=== PATIENT | female | born 1980 | race Caucasian/White ===

== ENCOUNTER 2023-08-29 11:23 | Outpatient (OUT) | payer OTHER, SELFPAY | END 2023-08-29 11:24 | disposition home or self-care (01) | PROVIDERS: PCP Family Medicine; Visit Provider Family Medicine | DX: R35.0 Frequency of micturition (principal) | CPT/HCPCS: 87086 ==

== ENCOUNTER 2023-10-24 08:24 | Outpatient (OUT) | payer OTHER, SELFPAY ==
[2023-10-24 09:33] LABS: Thyroid Stimulating Hormone 2.748 uIU/mL (0.358-3.740)
== END 2023-10-24 08:25 | disposition home or self-care (01) ==
PROVIDERS: PCP Family Medicine; Visit Provider Family Medicine
DX: R63.5 Abnormal weight gain (principal)
CPT/HCPCS: 36415; 84443

== ENCOUNTER 2024-05-10 16:55 | Outpatient (OUT) | payer OTHER, SELFPAY ==
--- OUTSIDE RECORDS SUMMARY | 2024-05-10 17:04 | XMS_ITS | CCD ---
Author Organization [facility] Care Team Providers Care Scales Inspector Name Role Phone LIZ CHI Admitting Unavailable LIZ CHI Attending Unavailable Liz Chi Unavailable DO Liz Chi Primary Care Provider [phone] DO Jeremiah Schmitz Attending Provider [phone] DO Liz Chi Primary Care Provider DO Jeremiah Schmitz Attending Provider [phone] DO Liz Chi Attending Provider Akila RAWLS Attending Unavailable Akila RAWLS Attending Unavailable Akila RAWLS Attending Unavailable DO Liz Chi Primary Care Provider DO Liz Chi Attending Provider CHINA Anderson Attending Provider [phone] Alexandra Anderson Unavailable Self, Referral Attending Provider Unavailable DO Liz Chi Primary Care Provider JEREMIAH SCHMITZ Attending Unavailable JEREMIAH SCHMITZ Referring Unavailable DO Jeremiah Schmitz Attending Provider Alexandra Anderson Admitting Unavailable Alexandra Anderson Attending Unavailable NO FAMILY, PHYSICIAN Primary Care Unavailable Liz Chi Primary Care Unavailable Self, Referral Admitting Unavailable Self, Referral Attending Unavailable Liz Chi Admitting Unavailable Liz Chi Primary Care Unavailable Liz Chi Attending Unavailable Jeremiah Schmitz Attending Unavailable Liz Chi Primary Care Unavailable Jeremiah Schmitz Admitting Unavailable Allergies Allergy Classification Reported Allergen(s) Allergy Type Date of Onset Reaction(s) Facility (8 sources) Penicillins Drug allergy (disorder) 9 Hives [facility] Repository (6 sources) Penicillin Drug Allergy hives [facility] Other (12 sources) penicillAMINE Drug Allergy 3 [facility] (12 sources) Covid-19 (Subunit) Vaccine Drug allergy 3 [facility] (1 source) Penicillins Drug allergy (disorder) 9 [facility] Repository Medications Current Medications Medication Drug Class(es) Dates Sig (Normalized) Sig (Original) [id number] 60 actuat albuterol 0.09 mg/actuat metered dose inhaler (9 sources) beta2-Adrenergic Agonist Start: 11-03-2023 Albuterol Sulfate HFA 108 (90 Base) MCG/ACT 2 inhalations Inhalation qid Oct, Active Start: 11-16-2022 Albuterol Sulf ate (2.5 MG/3ML) 0.083% 1 vial Inhalation q4 hrs prn Oct, Not-Taking Start: 11-16-2022 24 hr amphetamine aspartate 5 mg / amphetamine sulfate 5 mg / dextroamphetamine saccharate 5 mg / dextroamphetamine sulfate 5 mg extended release oral capsule (12 sources) Central Nervous System Stimulant Start: 03-01-2024 End: 04-06-2024 take 20 mg by mouth once daily in the morning Dextroamphetamine-Amphetamine Active 20 MG PO Every morning April 06, 2024 Start: 01-06-2024 take 1 capsule by [facility] every twenty-four hours Amphetamine-Dextroamphet ER 20 MG 1 capsule in the morning Orally Once a day for 30 days Dec, Active Start: 11-07-2023 take 1 capsule by mo [facility] every twenty-four hours Amphetamine-Dextroamphet ER 20 MG 1 capsule in the morning Orally Once a day for 30 days Oct, Active Start: 10-07-2023 take 1 capsule by mo [facility] every twenty-four hours Amphetamine-Dextroamphet ER 10 MG 1 capsule in the morning Orally Once a day for 30 days Sep, Active Start: 09-08-2023 take 1 tablet by [facility] once daily in the morning Amphetamine-Dextroamphetamine 10 MG 1 tablet qd am Orally and take 1 tablet in the early afternoon for 30 days Aug, Active cetirizine hydrochloride 10 mg oral tablet (16 sources) Histamine-1 Receptor Antagonist Start: 04-06-2024 take 1 tablet by mouth once daily Cetirizine (Zyrtec) 10 mg tablet Active 10 MG PO Daily April 06, 2024 12:00am [facility] ZyrTEC Allergy 10 MG 1 tablet Orally Once a day prn Active D-Mannose (4 sources) Start: 04-06-2024 D-Mannose Acti ve EACH PO Daily April 06, 2024 8:48am Start: 04-06-2024 End: 04-06-2024 D-Mannose Discontinued EACH PO April 06, 2024 12:00am April 06, 2024 8:48am D-Mannose - (9 sources) D-Mannose - as d irected Orally Active Fish Oils (6 sources) take 1 capsule by mouth once darío ly Fish Oil 1000 MG 1 capsule Orally Once a day Active Cl-Fs-Eweq-Fa-Ca Carb-Vit K (Women's Multivitamin) 18 mg-400 mcg- 500 mg-50 mcg tablet (2 sources) Start: 04-06-2024 Ne-Rk-Tfty-Fa-Ca Carb-Vit K (Women's Multivitamin) 18 mg-400 mcg- 500 mg-50 mcg tablet Active TAB PO April 06, 2024 12:00am nitrofurantoin, macrocrystals 25 mg / nitrofurantoin, monohydrate 75 mg oral capsule (5 sources) Nitrofuran Antibacterial Start: 08-30-2023 take 1 capsule by mouth twice daily at mealtime Macrobid 100 MG 1 capsule Orally bid with food for 7 days Aug, Active Start: 08-19-2023 take 1 capsule by [facility] every twelve hours Nitrofurantoin Monohyd Macro 100 MG 1 capsule with food Orally every 12 hrs for 5 days Jul, Active Start: 07-24-2021 oseltamivir 75 mg oral capsule (2 sources) Neuraminidase Inhibitor Start: 11-17-2022 take 1 capsule by mouth every twelve hours Tamiflu 75 MG 1 capsule Orally Twice a day for 5 day(s) Oct, Active predniSONE 20 mg oral tablet (2 sources) Start: 11-16-2022 take 2 tablets by mouth once daily at mealtime predniSONE 20 MG 2 tablets Orally qd with food or milk for 5 days Oct, Active valACYclovir 1000 mg oral tablet (3 sources) Herpesvirus Nucleoside Analog DNA Polymerase Inhibitor, Herpes Simplex Virus Nucleoside Analog DNA Polymerase Inhibitor, Herpes Zoster Virus Nucleoside Analog DNA Polymerase Inhibitor Start: 12-14-2021 take 1 tablet by mouth every eight hours Valtrex 1 GM 1 tablet Orally tid for 7 days prn Nov, Active Completed/Discontinued Medications Medication Drug Class(es) Dates Sig (Normalized) Sig (Original) azithromycin 250 mg oral tablet (4 sources) Macrolide Antimicrobial Start: 09-22-2022 Azithromycin 250 MG 2 tablets on day 1 Orally then take 1 tablet daily on days 2-5 for 5 days Aug, Not-Taking ibuprofen 600 mg oral tablet (7 sources) Nonsteroidal Anti-inflammatory Drug Start: 12-23-2018 End: 04-06-2024 take 600 mg by mouth every six hours Ibuprofen Discontinued 600 MG PO Q6H December 23, 2018 1:00am April 06, 2024 8:37am ondansetron 4 mg oral tablet (7 sources) Serotonin-3 Receptor Antagonist Start: 12-23-2018 End: 04-06-2024 take 1 tablet by mouth every eight hours Ondansetron Hcl (Zofran) 4 mg tablet Discontinued 4 MG PO Q8H 10 December 23, 2018 1:00am April 06, 2024 8:38am Problems Active Problems Problem Classification Problem Date Documented Date Episodic/Chronic Allergic reactions (15 sources) Atopic dermatitis; Translations: [Atopic dermatitis, unspecified] Chronic Allergic reactions (1 source) Urticaria, unspecified Episodic Anxiety disorders (15 sources) Anxiety; Translations: [Anxiety disorder, unspecified] Chronic Attention-deficit, conduct, and disruptive behavior disorders (6 sources) Attention deficit hyperactivity disorder; Translations: [Attention-deficit hyperactivity disorder, unspecified type] 03-01-2024 Chronic Attention-deficit, conduct, and disruptive behavior disorders (5 sources) Attention-deficit hyperactivity disorder, unspecified type; Translations: [Attention deficit disorder with hyperactivity] Chronic Nonmalignant breast conditions (1 source) Unspecified lump in unspecified breast Episodic Other circulatory disease (1 source) Other specified symptoms and signs involving the circulatory and respiratory systems Episodic Other endocrine disorders (15 sources) Hypoglycemia; Translations: [Hypoglycemia, unspecified] Chronic Other skin disorders (1 source) Localized swelling, mass and lump, unspecified Episodic Other upper respiratory disease (1 source) Other specified disorders of nose and nasal sinuses Episodic Residual codes; unclassified (1 source) Pain, unspecified Episodic Unclassified (1 source) Unspecified lump in the left breast, upper inner quadrant; Translations: [Unspecified lump in the left breast, upper inner quadrant] Onset: 06-10-2023 Urinary tract infections (15 sources) Chronic interstitial cystitis; Translations: [Interstitial cystitis (chronic) without hematuria] Chronic Urinary tract infections (1 source) Urinary tract infection, site not specified Episodic Past or Other Problems Problem Classification Problem Date Documented Da te Episodic/Chronic Genitourinary symptoms and ill-defined conditions (2 sources) Frequency of micturition; Translations: [Dysuria] Onset: 08-19-2023 Episodic Other nutritional; endocrine; and metabolic disorders (1 source) Abnormal weight loss Onset: 07-16-2022 Resolved: 07-16-2022 Episodic Unclassified (1 source) Cough R05.9 Results Test Name Value Interpretation Reference Range Facility US transvaginalon 05-03-2024 US transvaginal [facility] [place] [address] Ultrasound Report Signed Patient: Jennifer Collins MR#: [id number] 8 : 1980 Acct:[id number] Age/Sex: 44 / F ADM Date: 05/03/24 Loc: Room: Type: [facility] Attending Dr: Jeremiah Schmitz DO Ordering Provider: Jeremiah Schmitz DO Date of Service: 05/03/24 US/US pelvic complete: R10.2 ([id number]) US/US transvaginal: R10.2 Copies to: Jeremiah Schmitz DO EXAMINATION TYPE: US pelvic complete, US transvaginal Grayscale, color scale Doppler, vascular duplex analysis of the bilateral ovaries DATE OF EXAM ORDERED: 05/03/2024 5:34 PM HISTORY: Right-sided pelvic pain COMPARISON: NONE TECHNIQUE: Realtime Transvaginal and Transabdominal imaging was performed. Transvaginal imaging was utilized to better evaluate the ovaries and the endometrial stripe. Grayscale, color scale Doppler, vascular duplex analysis of the bilateral ovaries was performed to assess blood flow. FINDINGS: The uterus measures 9.1 x 4.7 x 5.2 cm. The uterus is normal in echogenicity. Endometrium: Normal thickness and appearance. The endometrium measures 8 mm in thickness. Ovaries: There is a dominant follicle in the right ovary measuring 2.5 cm in greatest dimension. There is no evidence of mass. Right Ovary measurements: 3.7 x 1.6 x 3.0 cm Left Ovary measurements: 2.9 x 1.4 x 2.8 cm No abnormal adnexal mass is seen. No free fluid in the pelvic cul-de-sac. Vascular duplex analysis of the bilateral ovaries demonstrates normal blood flow without evidence of ovarian ischemia. US/US pelvic complete IMPRESSION: There is a dominant follicle in the right ovary measuring 2.5 cm in greatest dimension. No mass or free fluid. No evidence of ovarian ischemia. Impression dictated by: Eligio Esteban M.D.05/03/2024 6:39 PM Dictation Location: [place] [address] Tech: Maureen Moses Transcribed By: JULIEN 05/03/241838 Dictated By: Eligio Esteban II, MD 05/03/241834 Signed By: 05/03/241838 Normal The Count Includes [facility] MM screening mammo BI w/CADo n 02-17-2024 MM screening mammo BI w/CAD [facility] [place] [address] [place] [address] Mammography Report Signed Patient: Jennifer Collins MR#: [id number] 8 : 1980 Acct:[id number] Age/Sex: 44 / F ADM Date: 02/17/24 Loc: [place] Room: Type: [facility] Attending Dr: Referral Self Copies to: Liz Chi DO SELF,REFERRAL Ordering Provider: SELF,REFERRAL Date of Service: 02/17/24 MM/MM screening mammo BI w/CAD: SCREENING CLINICAL DATA: Screening for malignancy. BILATERAL SCREENING MAMMOGRAMS - FULL FIELD DIGITAL WITH TOMOSYNTHESIS AND CAD Routine and implant displacement tomosynthesis craniocaudal and mediolateral oblique views of both breasts were obtained using low-dose digital technique. Comparison is made to prior studies from July 23, 2020 through September 30, 2022. This examination was reviewed with the aid of CAD. There are bilateral retropectoral saline implants. These may obscure breast tissue. There are scattered fibroglandular densities. A few benign calcifications are seen. There are no developing masses, typically malignant calcifications or architectural distortion. There has been no significant interval change. MM/MM screening mammo BI w/CAD IMPRESSION: NO MAMMOGRAPHIC EVIDENCE OF MALIGNANCY. ROUTINE FOLLOW-UP IS RECOMMENDED IN ONE YEAR. RESULT CODE: 2 Benign Findings(s) DENSITY CODE: 2 (approximately 25-50% glandular) FOLLOW UP: 1YR The false-negative rate of mammography is approximately 10-percent. Management of a palpable abnormality must be based on clinical grounds. Patient was entered into a reminder system with a target due date for the next mammogram. Impression dictated by: Yesenia Raymundo M.D.02/17/2024 12:56 PM Dictation Location: [facility] Transcribed By: JULIEN 02/17/24 1256 Dictated By: Yesenia Raymundo MD 02/17/24 1251 Signed By: 02/17/24 1256 Normal The Count Includes [facility] Urine Cultureon 08-19-2023 Bacteria identified Cx Nom (U) Reason for Exam Dysuria Urine 75,000 colonies/ml mixed bacterial skin contaminants 2 Days PERFORMED BY: [place] [address] PATHOLOGIST MACHINE I COREMAKER RODRICK HERRERA M.D. Normal The Count Includes [facility] Comment on above: Performed By: #### C UU #### [address] US breast LT limitedon 06-10 US breast LT limited [facility] [place] [address] [place] [address] Ultrasound Report Signed Patient: Jennifer Collins MR#: [id number] 8 : 1980 Acct:[id number] Age/Sex: 43 / F ADM Date: 06/10/23 Loc: [facility] Room: Type: [facility] Attending Dr: Liz Chi DO Ordering Provider: Liz Chi DO Date of Service: 06/10/23 US/US breast LT limited: Mass Copies to: Liz Chi DO LIMITED LEFT BREAST ULTRASOUND CLINICAL DATA: Palpable lump at the central medial left breast. COMPARISON: Mammogram September 30, 2022 Real-time ultrasound evaluation of the area of palpable concern at the central medial left breast was performed. Patient's breast implant is visualized. There is a group of 3 cysts at 9:00, 5 cm from the nipple. The entire area measures 13 mm in size. The central cyst is the largest measuring 6 mm. One of the cysts has low level echoes suggesting debris. No other cystic or solid masses are noted. US/US breast LT limited IMPRESSION: GROUP OF 3 CYSTS AT THE SITE OF PALPABLE CONCERN, ONE OF WHICH APPEARS TO CONTAIN DEBRIS. ROUTINE MAMMOGRAPHIC FOLLOW-UP IS SUGGESTED. Impression dictated by: Yesenia Raymundo M.D.06/10/2023 8:34 AM Dictation Location: [facility] Tech: Janny Velez Transcribed By: JULIEN 06/10/23833 Dictated By: Yesenia Raymundo MD 06/10/23 0815 Signed By: 06/10/23833 Normal The Count Includes [facility] Hep Bs Abon 04-28-2023 HBV surface Ab Ql (S) Reactive Invalid Interpretation Code [facility] Comment on above: Result Comment: Non Reactive: Inconsistent with immunity, less than 10 mIU/mL Reactive: Consistent with immunity, greater than 9.9 mIU/mL Performed at: [facility] [id number] PhD Baldev Arteaga Performed By: #### 2 [id number] #### [facility] [address] [place] [address] Quantiferon-TB Plus (Client Incubated)on 01-24-2023 Gamma interferon background IA Qn (Bld) 0.01 International_Unit/m L Invalid Interpretation Code [facility] Comment on above: Performed By: #### 2 [id number], [id number], [id number], [id number] #### [facility] [address] [place] [address] M. tuberculosis stim IFN-g by CD4+ CD8+ T-cells Qn (Bld) 0.01 International_Unit/m L Invalid Interpretation Code [facility] Comment on above: Performed By: #### 2 [id number], [id number], [id number] #### [facility] [address] [place] [address] M. tuberculosis stim IFN-g by CD4+ T-cells Qn (Bld) 0.02 International_Unit/m L Invalid Interpretation Code [facility] Comment on above: Performed By: #### 2 045608, [id number], [id number], [id number] #### [facility] [address] [place] [address] M. tuberculosis stim IFN-g Ql (Bld) [Interp] Negative Invalid Interpretation Code Negative [facility] Comment on above: Result Comment: No r esponse to M tuberculosis antigens detected. Infection with M tuberculosis is unlikely, but high risk individuals should be considered for additional testing (ATS/IDSA/CDC Clinical Practice Guidelines, 2017). The reference range is an Antigen minus Nil result of <0.35 IU/mL. The specimen received for QuantiFERON testing was incubated by the ordering institution. Specific procedures outlined in our Directory of Services and in the package insert for the QuantiFERON Gold (In Tube) test must be followed to enable for proper stimulation of cells for the production of interferon gamma. Chemiluminescence immunoassay methodology Performed at: [facility] [id number] PhD Baldev Arteaga Performed By: #### 2 [id number], [id number], [id number], [id number] #### [facility] [address] [place] [address] Mitogen stimulated gamma interferon Qn (Bld) >10.00 Invalid Interpretation Code [facility] Comment on above: Performed By: #### 2 141923, [id number], [id number], [id number] #### [facility] [address] [place] [address] Service comment (Unsp spec) [Interp] Comment Invalid Interpretation Code [facility] Comment on above: Result Comment: Drew tiFERON-TB Gold Plus is a qualitative indirect test for M tuberculosis infection (including disease) and is intended for use in conjunction with risk assessment, radiography, and other medical and diagnostic evaluations. The QuantiFERON-TB Gold Plus result is determined by subtracting the Nil value from either TB antigen (Ag) value. The Mitogen tube serves as a control for the test. Performed By: #### 2 912238, [id number], [id number], [id number] #### [facility] [address] [place] [address] Hep Bs Abon 01-22-2023 HBV surface Ab Ql (S) Non-Reactive Invalid Interpretation Code [facility] Comment on above: Result Comment: Non Reactive: Inconsistent with immunity, less than 10 mIU/mL Reactive: Consistent with immunity, greater than 9.9 mIU/mL Performed at: [address] [id number] PhD Baldev Arteaga Performed By: #### 2 054112, [id number], [id number], [id number] #### [facility] [address] [place] [address] Measles/Mumps/Rubella Immuni tyon 01-22-2023 MeV IgG IA Qn (S) 78.0 A unit/mL Invalid Interpretation Code Immune >16.4 [facility] Comment on above: Result Comment: Nega tive <13.5 Equivocal 13.5 - 16.4 Positive >16.4 Presence of antibodies to Rubeola is presumptive evidence of immunity except when acute infection is suspected. Performed By: #### 2 264424, [id number], [id number], [id number] #### [facility] [address] [place] [address] MuV IgG IA Qn (S) 96.3 A unit/mL Invalid Interpretation Code Immune >10.9 [facility] Comment on above: Result Comment: Nega tive <9.0 Equivocal 9.0 - 10.9 Positive >10.9 A positive result generally indicates past exposure to Mumps virus or previous vaccination. [facility]formed [facility]: [facility] [id number] PhD Baldev Arteaga Performed By: #### 2 704762, [id number], [id number], [id number] #### [facility] [address] [place] [address] Rubella virus IgG Qn (S) 30.40 [IU]/mL Invalid Interpretation Code Immune >0.99 [facility] Comment on above: Result Comment: Non- immune <0.90 Equivocal 0.90 - 0.99 Immune >0.99 Performed By: #### 2 [id number], [id number], [id number], [id number] #### [facility] [address] [place] [address] Varic IgGon 01-22-2023 VZV IgG IA Qn (S) 1663 Invalid Interpretation Code Immune >165 [facility] Comment on above: Result Comment: Nega tive <135 Equivocal 135 - 165 Positive >165 A positive result generally indicates exposure to the pathogen or administration of specific immunoglobulins, but it is not indication of active infection or stage of disease. Performed at: [facility] [id number] PhD Baldev Arteaga Performed By: #### 2 719281, [id number], [id number], [id number] #### [facility] [address] [place] [address] COVID-19 Detected/Not Detect edOrdered By: Liz Chi on 11-16-2022 SARS-CoV-2 (COVID-19) RNA REX+non-probe Ql (Nph) Not detected Not Detecte [facility] Comment on above: This is a duplicate RP2.1 COVID (PCR) result to be used for statistical tracking purpose only. No Panel InformationOrdered By: Liz Chi on 11-16-2022 Respiratory Panel (PCR) [facility] Urine culture routineOrdered By: Jeremiah Schmitz on 09-05-2022 Bacteria identified Cx Nom (U) 2 Days [facility] Human papilloma virus 16+18+ 31+33+35+39+45+51+52+56+58+59+66+68 DNA [Presence] in CerOrdered By: Jeremiah Schmitz on 09-03-2022 HPV 16+18+31+33+35+39+45+5 1+52+56+58+59+66+68 DNA Probe+sig amp Ql (Cvx) Negative Negative [facility] Comment on above: This nucleic acid am plification test detects fourteen high- risk HPV types (16,18,31,33,35,39,45,51,52,56,58,59,66,68)without differentiation.Performed at: [facility] [address] [place], [place] [id number] Director: Peterson Alfonso MD, Phone: [phone] at: =[facility] [id number] Director: Chelsey Akers MD, Phone: [phone] No Panel InformationOrdered By: Jeremiah Schmitz on 09-03-2022 IG Pap w/Ct-Ng & HPV Rflx (Off-Site Note . [facility] Comment on above: TESTS RESULT FLAG UN ITS REF RANGE LAB Clinician Provided Cytology Information No. of containers..01 ThinPrep VialDIAGNOSIS: 01 NEGATIVE FOR INTRAEPITHELIAL LESION OR MALIGNANCY.Specimen adequacy: 01 Satisfactory for evaluation. Endocervical and/or squamous metaplastic cells (endocervical component) are present.Performed by: Annie Rueda, Manager [employer] ([employer]). 01Note: Note 02 The Pap smear is a screening test designed to aid in the detection of premalignant and malignant conditions of the uterine cervix. It is not a diagnostic procedure and should not be used as the sole means of detecting cervical cancer. Both false-positive and false-negative reports do occur.Test Methodology: Note 02 This liquid based ThinPrep(R) pap test was screened with the use of an image guided system. ---- FLAG LEGEND: L-Low Normal,H-High Normal,LL-Alert Low,HH-Alert High <-Panic Low,>-Panic High,A-Abnormal,AA-Critical Abnormal -----Performed at:01 [facility] [address] [place] [id number] Peterson Alfonso MD, [address] [facility] [address] [id number] Chelsey Akers MD, Vital Signs Date Time Vital Sign Value Performing Clinician Facility 05-27-2023 11:10-0400 Body height 162.56 cm Liz Chi Other [facility] Other 05-27-2023 11:10-0400 Body mass index (BMI) [Ratio] 21.97 kg/m2 Liz Chi Other [facility] Other 05-27-2023 11:10-0400 Body temperature 98.5 [degF] Liz Chi Other [facility] Other 05-27-2023 11:10-0400 Body weight 58.06 kg Liz Chi Other [facility] Other 05-27-2023 11:10-0400 Diastolic blood pressure 72 mm[Hg] Liz Chi Other [facility] Other 05-27-2023 11:10-0400 Respiratory rate 16 /min Liz Chi Other [facility] Other 05-27-2023 11:10-0400 SaO2% (BldA) [Mass fraction] 99 % Liz Chi Other [facility] Other 05-27-2023 11:10-0400 Systolic blood pressure 110 mm[Hg] Liz Chi Other [facility] Other 07-16-2022 11:30-0400 Body height 162.56 cm Liz Chi Other [facility] Other 07-16-2022 11:30-0400 Body mass index (BMI) [Ratio] 21.63 kg/m2 Liz Chi Other [facility] Other 07-16-2022 11:30-0400 Body temperature 98.1 [degF] [facility] [facility] Other 07-16-2022 11:30-0400 Body weight 57.15 kg Liz Chi Other [facility] Other 07-16-2022 11:30-0400 Diastolic blood pressure 70 mm[Hg] Liz Chi Other [facility] Other 07-16-2022 11:30-0400 Respiratory rate 16 /min Liz Chi Other [facility] Other 07-16-2022 11:30-0400 SaO2% (BldA) [Mass fraction] 98 % Liz Chi Other [facility] Other 07-16-2022 11:30-0400 Systolic blood pressure 102 mm[Hg] Liz Chi Other [facility] Other Encounters Encounter Date Encounter Type Care Provider Facility Start: 05-03-2024 End: 05-03-2024 ambulatory DO Liz Chi Work Phone: [facility] Work Phone: Start: 05-03-2024 End: 05-03-2024 Patient encounter procedure DO Liz Chi Work Phone: [facility]Ul[facility]ound [facility] [place] Work Phone: Start: 04-30-2024 End: 04-30-2024 ambulatory JEREMIAH SCHMITZ Not Available Start: 04-06-2024 End: 04-06-2024 ambulatory DO Liz Chi Work Phone: [facility] Work Phone: Start: 04-06-2024 End: 04-06-2024 Patient encounter procedure DO Liz Chi Work Phone: Count Includes [facility] Work Phone: Start: 03-01-2024 Non-patient / Non-visit DO Jose Antonio Chi Work Phone: Count Includes [facility] Work Phone: Start: 02-17-2024 End: 02-17-2024 Patient encounter procedure DO Liz Chi Work Phone: [facility] Work Phone: Start: 02-17-2024 End: 02-17-2024 ambulatory DO Liz Chi Work Phone: [facility] Work Phone: Start: 01-06-2024 End: 01-06-2024 ambulatory Liz Chi Other [facility] Other Start: 01-06-2024 Office outpatient vi sit 15 minutes Liz Chi [facility] Start: 11-07-2023 End: 11-07-2023 ambulatory Liz Chi Other [facility] Other Start: 11-07-2023 Telephone encounter Liz Chi [facility] Start: 10-24-2023 End: 10-24-2023 ambulatory Liz Chi Other [facility] Other Start: 10-24-2023 Telephone encounter Liz Chi [facility] [place] Start: 09-08-2023 End: 09-08-2023 ambulatory Liz Chi Other [facility] Other Start: 09-08-2023 Telephone encounter Liz Chi [facility] [place] Start: 08-30-2023 End: 08-30-2023 ambulatory Liz Chi Other [facility] Other Start: 08-30-2023 Telephone encounter Liz Chi [facility] [place] Start: 08-29-2023 End: 08-29-2023 ambulatory Liz Chi Other [facility] Other Start: 08-29-2023 Telephone encounter Liz Chi [facility] [place] Start: 08-21-2023 End: 08-21-2023 ambulatory Alexandra Anderson Other [facility] Other Start: 08-21-2023 Telephone encounter Alexandra Anderson [facility] [place] Start: 08-20-2023 End: 08-20-2023 ambulatory Liz Chi Other [facility] Other Start: 08-20-2023 Telephone encounter Liz Chi [facility] [place] Start: 08-19-2023 End: 08-19-2023 ambulatory DO Liz Chi Work Phone: [facility] Work Phone: Start: 08-19-2023 End: 08-19-2023 Departed Referred DO Liz Chi Work Phone: [facility] [place] Work Phone: Start: 06-10-2023 End: 06-10-2023 Patient encounter procedure DO Liz Chi Work Phone: [facility] for [facility] Car Start: 06-10-2023 End: 06-10-2023 ambulatory DO Liz Chi Work Phone: [facility] Work Phone: Start: 05-27-2023 End: 05-27-2023 ambulatory Liz Chi Other [facility] Other Start: 05-27-2023 Encounter for genera l adult medical examination without abnormal findings Liz Chi [facility] [place] Start: 05-27-2023 Periodic preventive med est patient 40-64yrs Liz Chi [facility] Start: 04-26-2023 End: 04-27-2023 ambulatory Akila T [facility] Facility:[facility] Start: 04-19-2023 End: 04-20-2023 ambulatory Akila T [facility] Facility:[facility] Start: 01-21-2023 End: 01-22-2023 ambulatory Akila T [facility] Facility:[facility] Start: 11-17-2022 End: 11-17-2022 ambulatory Liz Chi Other [facility] Other Start: 11-17-2022 Telephone encounter Liz Chi [facility] [place] Start: 11-16-2022 End: 11-16-2022 Patient encounter procedure DO Liz Chi Work Phone: [facility] Start: 11-16-2022 End: 11-16-2022 ambulatory DO Liz Chi Work Phone: [facility] Work Phone: Start: 11-16-2022 Telephone encounter Liz Chi [facility] [place] Start: 11-01-2022 End: 11-01-2022 ambulatory Liz Chi Other [facility] Other Start: 11-01-2022 Telephone encounter Liz Chi [facility] [place] Start: 09-30-2022 End: 09-30-2022 Patient encounter procedure DO Liz Chi Work Phone: [facility] Start: 09-22-2022 End: 09-22-2022 ambulatory Liz Chi Other [facility] Other Start: 09-22-2022 Telephone encounter Liz Chi [facility] Start: 09-03-2022 End: 09-03-2022 ambulatory DO Liz Chi Work Phone: [facility] Work Phone: Start: 09-03-2022 End: 09-03-2022 Departed Referred DO Liz Chi Work Phone: [facility] [place] Start: 07-16-2022 End: 07-16-2022 ambulatory Liz Chi Other [facility] Other Start: 07-16-2022 Encounter for genera l adult medical examination without abnormal findings Liz Chi [facility] Start: 07-16-2022 Periodic preventive med est patient 40-64yrs Liz Chi [facility] Start: 11-30-2021 End: 11-30-2021 ambulatory Liz Chi Other [facility] Other Start: 11-30-2021 Telephone encounter Liz Chi [facility] Start: 12-05-2019 Patient encounter procedure LIZ CHI Facility: Procedures Date Procedure Procedure Detail Performing Clinician Start: 05-03-2024 Pelvic echography DO Andrea Chi Work Phone: Start: 05-03-2024 Transvaginal echography DO Liz Chi Work Phone: Start: 02-17-2024 Screening mammograph y of bilateral breasts DO Liz Chi Work Phone: Start: 06-10-2023 Ultrasonography of l eft breast DO Liz Chi Work Phone: Start: 09-30-2022 Screening mammograph y of bilateral breasts DO Liz Chi Work Phone: Respiratory Panel (PCR) DO Guillermo Chi Work Phone: Urine culture DO Liz alcocer Work Phone: Plan of Treatment Date Care Activity Detail Author Start: 08-19-2023 Bacteria identified in Urine by Culture [facility] Bacteria identified in Urine by Culture [facility] Human papilloma viru s 16+18+31+33+35+39+45+51+52+56+58 +59+66+68 DNA [Presence] in Cervix by Probe with signal amplification [facility] Work Phone: Immunizations Immunization Date Immunization Notes Care Provider Fa cili 11-14-2021 COVID-19 Vaccine Mod angelina - Documentation Purposes Only Liz Chi Other [facility] 09-14-2021 influenza, seasonal, injectable Liz Chi Other [facility] 01-01-2021 COVID-19 Vaccine Mod angelina - Documentation Purposes Only Liz Chi Other [facility] 12-04-2020 COVID-19 Vaccine Mod angelina - Documentation Purposes Only Liz Chi Other [facility] Payers Date Payer Category Payer Unknown [id number] 2020 Unknown [id number] 1979 Unknown [id number] 1980 Unknown [id number] 1959 Self-pay Unknown Regular [employer] [id number] Unknown [id number] Unknown [id number] Social History Date Type Detail Facility Unknown if ever smoked [facility] Other Sex Assigned At Sex Assigned At Bir th [facility] Other Start: 12-23-2018 End: 04-06-2024 Tobacco smoking status NHIS Ex-smoker (finding) [facility] Start: 1980 Sex Assigned At Female F [facility] Clinical Notes 07-21-2012 to 04-06-2024 Note Date & Type Note Facility 04-06-2024 Evaluation note Authored April 06, 2024 9:09a m The above note written by __ _Raffi Clarke____ acting as human recorder, note dictated by Dr. Duggan .I performed the above HPI, ROS, and Examination. I formulated and dictated the treatment plan and was present for entire encounter. Liz Chi D.O. [facility] Work Phone: [phone] 502-748802-09-2024 Evaluation note* Encounter Date Diagnosis Assessment Notes Treatment Notes Treatment Clinical Notes Dec, ADHD (ICD-10 - F90.9) The increased dose is not inducing panic or anxiety and she is able to sleep. She has a better sleep schedule because she is focusing on what she needs to be doing, is concentrating on what she is doing and is able to eat when she is supposed to so she can go to bed when she should. She voices that she feels great on this current dose. We discussed [place] [facility] studies and how long she can be on the medication for. She had done some research on the medication and was concerned about developing tremors. Her mother has tremors from an anxiety medicine that she was on years ago and Jenniefr was concerned when she read that the stimulant could cause tremors after being on [place] [facility]. I did explain to her that I am not aware of any studies that show that this medication is harmful long term care pharmacist. For her the benefits outweigh the risks, she voices that when she takes the medicine she feels normal she can engage in conversation and is not running all over the place. She would like to continue with the medicine. Dec, Other 10:13 AM - 10:31 AM [facility] Other 12-11-2023 Evaluation note* Encounter Date Diagnosis Assessment Notes Treatment Notes Treatment Clinical Notes Oct, ADHD (ICD-10 - F90.9) [facility] Other 11-27-2023 History general Narrative - Reported* Type Description Date Medical History Pap and pelvic ; Dr. Schmitz Medical History No history of Mammogram, [place]os copy Medical History CT Abdomen and Pelvis over 10 ye ars ago; [facility] Medical History History of Chicken Pox Medical History Skin Cancer (squamous cell carci noma on face) Medical History [facility] [facility] Medical History Tilt Table Test; Dr. Dyer Medical History MRI of the Brain; [facility] , Medical History POT'S Syndrome diagnosed by Dr. Roney Dyer Medical History EEG 02-26-13; [facility] Medical History Heart Ultrasound 02-26-13; [facility] Medical History Chest X-Ray 02-26-13; [facility] Medical History Stress Test 02-26-13; [facility] Medical History anxiety Surgical History T & A Surgical History Appendectomy Surgical History Squamous Cell Carcin omer removed from Face Dr. An Surgical History US lt breast- l ump 08/2015 Hospitalization History T & A Hospitalization History Appendectomy Hospitalization History Childbirth 04, 06, 11 Hospitalization History [facility] - sharp pain in chest 09/2016 [facility] Other 10-13-2023 History general Narrative - Reported* Type Description Date Medical History Pap and pelvic ; Dr. Schmitz Medical History No history of Mammogram, [place] copy Medical History CT Abdomen and Pelvis over 10 ye ars ago; [facility] Medical History History of Chicken Pox Medical History Skin Cancer (squamous cell carci noma on face) Medical History [facility] Medical History Tilt Table Test; Dr. Dyer Medical History MRI of the Brain; [facility] , Medical History POT'S Syndrome diagnosed by Dr. Roney Dyer Medical History EEG 02-26-13; [facility] Medical History Heart Ultrasound 02-26-13; [facility] Medical History Chest X-Ray 02-26-13; [facility] Medical History Stress Test -13; [facility] Medical History anxiety Surgical History T & A Surgical History Appendectomy Surgical History Squamous Cell Carcin omer removed from Face Dr. An Surgical History US lt breast- l ump 08/2015 Hospitalization History T & A Hospitalization History Appendectomy Hospitalization History Childbirth , , Hospitalization History [facility] - sharp pain in chest 09/2016 [facility] Other 10-12-2023 Evaluation note* Encounter Date Diagnosis Assessment Notes Treatment Notes Treatment Clinical Notes Aug, ADHD (ICD-10 - F90.9) She is studying for a big test at this time and has found it difficult to focus. She had difficulty focusing when she was younger. She has always struggled with retaining information when reading. She will start doing something but then this turns into doing multiple other things. She struggled in undergrad but did well in grad school, but was on medication in grad school. Recommend she take more physical breaks while she is studying, exercise when she can. She has tried to get up and clean but only is small sections. 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 The more physically active she can be the better. She feels she only needs to take medication until she has completed the exam she is studying for, she is not excited about taking medication and does not want to be on it [place] [facility]. We discussed medication today. Side effects/risks/benef its of medication were reviewed. I would like to try Adderall and she agrees to this. She will need to be seen every three months for evaluation. She can adjust the dose as she feels she needs it. Any day she does not need the medication she does not have to take it. I will see her back in one month. Call sooner if she has any issues with the medication or feels the dose needs to be increased. Aug, Other 9:02 AM - 9:22 AM [facility] Other 10-03-2023 Evaluation note* Encounter Date Diagnosis Assessment Notes Treatment Notes Treatment Clinical Notes Aug, Acute lower UTI (urinary tract infection) (ICD-10 - N39.0) [facility] Other 10-02-2023 Evaluation note* Encounter Date Diagnosis Assessment Notes Treatment Notes Treatment Clinical Notes Aug, Urinary frequency (ICD-10 - R35.0) [facility] Other 09-24-2023 History general Narrative - Reported* Type Description Date Medical History Pap and pelvic 3-2011; Dr. Schmitz Medical History No history of Mammogram, Colonos copy Medical History CT Abdomen and Pelvis over 10 ye ars ago; [facility] Medical History History of Chicken Pox Medical History Skin Cancer (squamous cell carci noma on face) Medical History [facility] [facility] Medical History Tilt Table Test; Dr. Dyer Medical History MRI of the Brain; [facility] , Medical History POT'S Syndrome diagnosed by Dr. Roney Dyer Medical History EEG 02-26-13; [facility] Medical History Heart Ultrasound 02-26-13; [facility] Medical History Chest X-Ray 02-26-13; [facility] Medical History Stress Test 02-26-13; [facility] Medical History anxiety Surgical History T & A Surgical History Appendectomy Surgical History Squamous Cell Carcin omer removed from Face Dr. An Surgical History US lt breast- l ump 08/2015 Hospitalization History T & A Hospitalization History Appendectomy Hospitalization History Childbirth 04, , 11 Hospitalization History [facility] - sharp pain in chest 09/2016 [facility] Other 02-16-2023 History general Narrative - Reported* Type Description Date Medical History Pap and pelvic ; Dr. Schmitz Medical History No history of Mammogram, [place] copy Medical History CT Abdomen and Pelvis over 10 ye ars ago; [facility] Medical History History of Chicken Pox Medical History Skin Cancer (squamous cell carci noma on face) Medical History [facility] Medical History Tilt Table Test; Dr. Dyer Medical History MRI of the Brain; [facility] , Medical History POT'S Syndrome diagnosed by Dr. Roney Dyer Medical History EEG 02-26-13; [facility] Medical History Heart Ultrasound 02-26-13; [facility] Medical History Chest X-Ray 02-26-13; [facility] Medical History Stress Test 02-26-13; [facility] Medical History anxiety Surgical History T & A Surgical History Appendectomy Surgical History Squamous Cell Carcin omer removed from Face Dr. An Surgical History US lt breast- l ump 08/2015 Hospitalization History T & A Hospitalization History Appendectomy Hospitalization History Childbirth , , 11 Hospitalization History [facility] - sharp pain in chest 09/2016 [facility] Other 12-20-2022 Evaluation note* Encounter Date Diagnosis Assessment Notes Treatment Notes Treatment Clinical Notes Oct, Cough (ICD-10 - R05.9) She does have a cough and chest congestion and body aches. I did provide her with an order to have a viral panel done to see if she is fighting a virus. If she is not then we can discuss antibiotic treatment. She is to call for the results. Rest, push fluids. I am going to provide her with Prednisone but asked her not to start this until we know the viral panel results. I would only want her to start this if her chest is becoming more tight and she is having trouble breathing. Oct, Chest congestion (ICD-10 - R09.89) She voices that her lungs are tight, she used a breathing treatment last night which helped. I will provide her with the Albuterol for the nebulizer. Guidance was given on how to use the nebulizer treatments. Oct, Body aches (ICD-10 - R52) Oct, Other 2:28 PM - 2:36 PM [facility] Other 10-26-2022 History general Narrative - Reported* Type Description Date Medical History Pap and pelvic -2011; Dr. Schmitz Medical History No history of Mammogram, Colonos copy Medical History CT Abdomen and Pelvis over 10 ye ars ago; [facility] Medical History History of Chicken Pox Medical History Skin Cancer (squamous cell carci noma on face) Medical History [facility] [employer] [facility] Medical History Tilt Table Test; Dr. Dyer Medical History MRI of the Brain; [facility] , Medical History POT'S Syndrome diagnosed by Dr. Roney Dyer Medical History EEG 02-26-13; [facility] Medical History Heart Ultrasound 02-26-13; [facility] Medical History Chest X-Ray 02-26-13; [facility] Medical History Stress Test 02-26-13; [facility] Medical History anxiety Surgical History T & A Surgical History Appendectomy Surgical History Squamous Cell Carcin omer removed from Face Dr. An Surgical History US lt breast- l ump 08/2015 Hospitalization History T & A Hospitalization History Appendectomy Hospitalization History Childbirth Hospitalization History [facility] - sharp pain in chest 09/2016 [facility] Other 08-19-2022 Evaluation note* Encounter Date Diagnosis Assessment Notes Treatment Notes Treatment Clinical Notes Jun, Wellness examination (ICD-10 - Z00.00) She is here for a wellness exam today. I did review her blood work results with her today. Her total cholesterol is 203. HDL is 71. LDL is 117. Triglycerides are 76. Her VLDL is 15 which is very good. I did discuss her cholesterol with her today, all questions she has were answered. We discussed that Fish Oil can put you at higher risk for A-fib especially if you take a higher dose. She voices that she does not always take this. She can choose if she would like to take this or if she would like to take a lower dose. After evaluation I did sign her wellness exam form. I did recommend that she do resistance weight training, kettle tuttle squats/lifts or swings to keep her bones strong. She and her go to the bike trail 2-3 times a week and do a 4 mile route where they will do 100 push ups/ squats, they have a specific regimen of exercises they do. I asked her to be sure to add in the resistance training and not just cardio. Jun, Weight loss (ICD-10 - R63.4) Her TSH is normal at 2.66. Jun, Other Ever since she got the COVID-19 vaccine she has had itchy palms/hands and feet so she has been taking 1 Zyrtec daily. If she does not take the Zyrtec her hands will begin to itch so she knows she needs the medication. She is told that it is safe to do this. [facility] Other 02-14-2014 History general Narrative - Reported* Type Description Date Medical History Pap and pelvic 3-2011; Dr. Schmitz Medical History No history of Mammogram, Colonos copy Medical History CT Abdomen and Pelvis over 10 ye ars ago; [facility] Medical History History of Chicken Pox Medical History Skin Cancer (squamous cell carci noma on face) Medical History [facility] [employer] [facility] Medical History Tilt Table Test; Dr. Dyer Medical History MRI of the Brain; [facility] , Medical History POT'S Syndrome diagnosed by Dr. Roney Dyer Medical History EEG 02-26-13; [facility] Medical History Heart Ultrasound 02-26-13; [facility] Medical History Chest X-Ray 02-26-13; [facility] Medical History Stress Test 02-26-13; [facility] Medical History anxiety Surgical History T & A Surgical History Appendectomy Surgical History Squamous Cell Carcin omer removed from Face Dr. An Surgical History US lt breast- l ump 08/2015 Hospitalization History T & A Hospitalization History Appendectomy Hospitalization History Childbirth , , Hospitalization History [facility] - sharp pain in chest 09/2016 [facility] Other 12-12-2013 History general Narrative - Reported* Type Description Date Medical History Pap and pelvic ; Dr. Schmitz Medical History No history of Mammogram, Colonos copy Medical History CT Abdomen and Pelvis over 10 ye ars ago; [facility] Medical History History of Chicken Pox Medical History Skin Cancer (squamous cell carci noma on face) Medical History [facility] Monitor Medical History Tilt Table Test; Dr. Dyer Medical History MRI of the Brain; [facility] , Medical History POT'S Syndrome diagnosed by Dr. Roney Dyer Medical History EEG 02-26-13; [facility] Medical History Heart Ultrasound 02-26-13; [facility] Medical History Chest X-Ray 02-26-13; [facility] Medical History Stress Test 02-26-13; [facility] Medical History anxiety Surgical History T & A Surgical History Appendectomy Surgical History Squamous Cell Carcin omer removed from Face Dr. An Surgical History US lt breast- l ump 08/2015 Hospitalization History T & A Hospitalization History Appendectomy Hospitalization History Childbirth , , Hospitalization History [facility] - sharp pain in chest 09/2016 [facility] Other 10-04-2013 History general Narrative - Reported* Type Description Date Medical History Pap and pelvic ; Dr. Schmitz Medical History No history of Mammogram, Colonos copy Medical History CT Abdomen and Pelvis over 10 ye ars ago; [facility] Medical History History of Chicken Pox Medical History Skin Cancer (squamous cell carci noma on face) Medical History [place] [employer] Medical History Tilt Table Test; Dr. Dyer Medical History MRI of the Brain; [facility] [place] Medical History POT'S Syndrome diagnosed by Dr. Roney Dyer Medical History EEG 02-26-13; [facility] Medical History Heart Ultrasound 02-26-13; [facility] Medical History Chest X-Ray 02-26-13; [facility] Medical History Stress Test 02-26-13; [facility] Medical History anxiety Surgical History T & A Surgical History Appendectomy Surgical History Squamous Cell Carcin omer removed from Face Dr. An Surgical History [facility] breast- l [facility] 08/2015 Hospitalization History T & A Hospitalization History Appendectomy Hospitalization History Childbirth 04, 06, 11 Hospitalization History [facility] - sharp pain in chest 09/2016 [facility] Other 10-03-2013 History general Narrative - Reported* Type Description Date Medical History Pap and pelvic ; Dr. Schmitz Medical History No history of Mammogram, [place] copy Medical History CT Abdomen and Pelvis over 10 ye ars ago; [facility] Medical History History of [place] Medical History Skin Cancer (squamous cell carci noma on face) Medical History [place] [employer] Medical History Tilt Table Test; Dr. Dyer Medical History MRI of the Brain; [facility] , Medical History POT'S Syndrome diagnosed by Dr. Roney Dyer Medical History EEG 02-26-13; [facility] Medical History Heart Ultrasound 02-26-13; [facility] Medical History Chest X-Ray 02-26-13; [facility] Medical History Stress Test 02-26-13; [facility] Medical History anxiety Surgical History T & A Surgical History Appendectomy Surgical History Squamous Cell Carcin omer removed from Face Dr. An Surgical History [place] breast- l [facility] 08/2015 Hospitalization History T & A Hospitalization History Appendectomy Hospitalization History Childbirth 04, 06, 11 Hospitalization History [facility] - sharp pain in chest 09/2016 [facility] Other 10-02-2013 History general Narrative - Reported* Type Description Date Medical History Pap and pelvic 3-2011; Dr. Schmitz Medical History No history of Mammogram, [place] copy Medical History CT Abdomen and Pelvis over 10 ye ars ago; [facility] Medical History History of [place] Medical History Skin Cancer (squamous cell carci noma on face) Medical History [place] [employer] Medical History Tilt Table Test; Dr. Dyer Medical History MRI of the Brain; [facility] Medical History POT'S Syndrome diagnosed by Dr. Roney Dyer Medical History EEG 02-26-13; [facility] Medical History Heart Ultrasound 02-26-13; [facility] Medical History Chest X-Ray 02-26-13; [facility] Medical History Stress Test 02-26-13; [facility] Medical History anxiety Surgical History T & A Surgical History Appendectomy Surgical History Squamous Cell Carcin omer removed from Face Dr. An Surgical History [facility] breast- l p 08/2015 Hospitalization History T & A Hospitalization History Appendectomy Hospitalization History Childbirth , , Hospitalization History [facility] - sharp pain in chest 09/2016 [facility] Other 02-16-2013 History general Narrative - Reported* Type Description Date Medical History Pap and pelvic ; Dr. Schmitz Medical History No history of Mammogram, [place] copy Medical History CT Abdomen and Pelvis over 10 ye ars ago; [facility] Medical History History of [place] Medical History Skin Cancer (squamous cell carci noma on face) Medical History [place] [employer] Medical History Tilt Table Test; Dr. Dyer Medical History MRI of the Brain; [facility] [place] Medical History POT'S Syndrome diagnosed by Dr. Roney Dyer Medical History EEG 02-26-13; [facility] Medical History Heart Ultrasound 02-26-13; [facility] Medical History Chest X-Ray 02-26-13; [facility] Medical History Stress Test 02-26-13; [facility] Medical History anxiety Surgical History T & A Surgical History Appendectomy Surgical History Squamous Cell Carcin omer removed from Face Dr. An Surgical History [place] breast- l [facility] 08/2015 Hospitalization History T & A Hospitalization History Appendectomy Hospitalization History Childbirth 04, , 11 Hospitalization History [facility] - sharp pain in chest 09/2016 [facility] Other 12-06-2012 History general Narrative - Reported* Type Description Date Medical History Pap and pelvic 3-2011; Dr. Schmitz Medical History No history of Mammogram, [place] copy Medical History CT Abdomen and Pelvis over 10 ye ars ago; [facility] Medical History History of [place] Medical History Skin Cancer (squamous cell carci noma on face) Medical History [place] [employer] Medical History Tilt Table Test; Dr. Dyer Medical History MRI of the Brain; [facility] [place] Medical History POT'S Syndrome diagnosed by Dr. Roney Dyer Medical History EEG 02-26-13; [facility] Medical History Heart Ultrasound 02-26-13; [facility] Medical History Chest X-Ray 02-26-13; [facility] Medical History Stress Test 02-26-13; [facility] Medical History anxiety Surgical History T & A Surgical History Appendectomy Surgical History Squamous Cell Carcin omer removed from Face Dr. An Surgical History [facility] breast- l [facility] 08/2015 Hospitalization History T & A Hospitalization History Appendectomy Hospitalization History Childbirth 04, 06, 11 Hospitalization History [facility] - sharp pain in chest 09/[address] [facility] Other 08-24-2012 History general Narrative - Reported* Type Description Date Medical History Pap and pelvic ; Dr. Schmitz Medical History No history of Mammogram, [place] copy Medical History CT Abdomen and Pelvis over 10 ye ars ago; [facility] Medical History History of [place] Medical History Skin Cancer (squamous cell carci noma on face) Medical History [place] [employer] Medical History Tilt Table Test; Dr. Dyer Medical History MRI of the Brain; [facility] [place] Medical History POT'S Syndrome diagnosed by Dr. Roney Dyer Medical History EEG 02-26-13; [facility] Medical History Heart Ultrasound 02-26-13; [facility] Medical History Chest X-Ray 02-26-13; [facility] Medical History Stress Test 02-26-13; [facility] Medical History anxiety Surgical History T & A Surgical History Appendectomy Surgical History Squamous Cell Carcin omer removed from Face Dr. An Surgical History [place] breast- l [facility] 08/2015 Hospitalization History T & A Hospitalization History Appendectomy Hospitalization History Childbirth , Hospitalization History [facility] - sharp pain in chest 09/2016 [facility] [place] Other Evaluation [facility]No [facility] [place] Other Evaluation noteNo assessment information available [facility] Work Phone: [facility] [place] Other Evaluation note* Diagnosis Onset Date Resolution Status ADHD (attention deficit hyperactivity disorder) acute [facility] Work Phone: History general Narrative - [facility] [employer] Other History general Narrative - [facility]No[facility] [place] Other Summary Purpose Family History No Family History Records Found Relationship Condition Age at Onset Recorded Date/T sanket father History of malignant neoplasm of prostate Unknown Malignant neoplasm Unknown grandparent Family history of colon cancer Unknown Unknown grandparent Unknown Family history of lung cancer Unknown Not Specified Malignant neoplasm Unknown Advance Directives No Advanced Directives Records Found Advance Directive Response Recorded Date/ Time Advance Directives No December 23, 2018 1:14pm Advance Directive Response Recorded Date/ Time Advance Directives No December 23, 2018 12:14pm Advance Directive Response Recorded Date/ Time Advance Directives No April 06 9:02am Chief Complaint and Reason for Visit Chief Complaint Z12.4 Z12.31 r05.9 r09.89 r52 Chief Complaint R22.9 Chief Complaint R22.9 Dysuria Chief Complaint Screening Chief Complaint Screening Amb Documentation med refill Reason for Visit ADHD (attention defi cit hyperactivity disorder) Chief Complaint Screening Amb Documentation med refill R10.2 Reason for Visit ADHD (attention defi cit hyperactivity disorder) Additional Source Comments INFORMATION SOURCE (unrecogn ized section and content) DATE CREATED AUTHOR 12/05/2019 [facility] DATE CREATED AUTHOR AUTHOR'S ORGANIZ ATION 05/06/2023 [facility] DATE CREATED AUTHOR AUTHOR'S ORGANIZ ATION 05/01/2024 [facility] EPIC DATE CREATED AUTHOR AUTHOR'S ORGANIZ ATION 05/05/2024 [facility] REASON FOR VISIT (unrecogniz ed section and content) wellness/review [facility] calrefillClinicalcoughNo InformationNo Informationpossible UTIClinicaldiscuss medication for ADHDClinicalrefill/dosage changemed refill Care Teams (unrecognized sec tion and content) Team Status: Active Member Role Status Dates Liz Chi DO Primary Care Provider Active Team Status: Inactive Member Role Status Dates Liz Chi DO Primary Care Provider, Attending Pro vider Active Team Status: Inactive Member Role Status Dates Liz Chi DO Primary Care Provider Active Jeremiah Schmitz , Attending Provider Active Team Status: Inactive Member Role Status Dates Alexandra Anderson APRN Attending Provider Active Team Status: Inactive Member Role Status Dates Referral Self Attending Provider Active Start: Sherlyn 2023 End: February 17, 2024 Liz Chi DO Primary Care Provider Active S tart: February 17, 2024 End: February 17, 2024 Team Status: Active Member Role Status Dates Liz Chi DO Primary Care Provider Active S tart: March 01, 2024 Raffi Clarke LPN Attending Provider Active St art: March 01, 2024 Team Status: Inactive Member Role Status Dates PHYSICIAN NO FAMILY Primary Care Provider Active Start: April 06, 2024 End: April 06, 2024 Liz Chi DO Attending Provider Active Star t: April 06, 2024 End: April 06, 2024 Team Status: Inactive Member Role Status Dereje Chi DO Primary Care Provider Active S tart: May 03, 2024 End: May 03, 2024 Jeremiah Schmitz DO Attending Provider Active Sta rt: May 03, 2024 End: May 03, 2024 Goals (unrecognized section and content) Goals may be documented in a n alternate section FOR RECORDS PERTAINING TO PATIENTS WHO ARE OR HAVE BEEN ENROLLED IN A CHEMICAL DEPENDENCY/SUBSTANCEABUSE PROGRAM, SOME INFORMATION MAY BE OMITTED. This clinical summary was aggregated from multiple sources. Caution should be exercised in using it in the provision of clinical care. This summary normalizes information from multiple sources, and as a consequence, information in this document may materially change the coding, format and clinical context of patient data. In addition, data may be omitted in some cases. CLINICAL DECISIONS SHOULD BE BASED ON THE PRIMARY CLINICAL RECORDS. [facility] [employer] [facility]. provides no warranty or guarantee of the accuracy or completeness of information in this document.
[2024-05-10 17:16] LABS: Bilirubin Urine NEGATIVE (NEGATIVE); Blood Urine TRACE-I (NEGATIVE); Clarity Urine CLEAR (CLEAR); Color Urine LT. YELLOW (YELLOW); Glucose Urine UA NEGATIVE (NEGATIVE); Ketones Urine NEGATIVE (NEGATIVE); Leukocyte Esterase Urine SMALL (NEGATIVE); Nitrite Urine NEGATIVE (NEGATIVE); Protein Urine NEGATIVE (NEG/TRACE); Specific Gravity Urine <=1.005 (1.005-1.025); Urobilinogen Urine 0.2 EU/dL (0.2-1.0); pH Urine 6.5 (5.0-9.0)
[2024-05-10 17:29] LABS: Bacteria Urine SMALL #/HPF (NONE SEEN); Cast Seen? NONE SEEN #/LPF (NONE SEEN); Crystals Seen? None Seen #/HPF (None Seen); Mucus Urine NONE SEEN (NONE SEEN); RBC Urine 0-2 #/HPF (0-2); Squamous Epithelial Cell Urine RARE #/LPF (NONE/RARE)
[2024-05-10 17:30] LABS: Urine Culture Indicated ALREADY ORDERED
== END 2024-05-10 16:56 | disposition home or self-care (01) ==
PROVIDERS: PCP Family Medicine; Visit Provider Obstetrics & Gynecology
DX: R10.2 Pelvic and perineal pain (principal); R35.0 Frequency of micturition; R39.15 Urgency of urination
CPT/HCPCS: 81001; 87086

== ENCOUNTER 2024-11-23 13:36 | Outpatient (OUT) | payer OTHER, SELFPAY ==
--- OUTSIDE RECORDS SUMMARY | 2024-11-23 13:56 | XMS_ITS | CCD ---
Author Organization [facility] Care Team Providers Care Contract Implementation Analyst Name Role Phone LIZ CHI Admitting Unavailable LIZ CHI Attending Unavailable Liz Chi Unavailable DO Liz Chi Primary Care Provider [phone] DO Jeremiah Schmitz Attending Provider DO Liz Chi Primary Care Provider [phone] DO Jeremiah Schmitz Attending Provider [phone] DO Liz Chi Attending Provider Akila RAWLS Attending Unavailable Akila RAWLS Attending Unavailable Akila RAWLS Attending Unavailable DO iLz Chi Primary Care Provider [phone] DO Liz Chi Attending Provider CHINA Anderson Attending Provider Alexandra Anderson Unavailable Self, Referral Attending Provider Unavailable DO Liz Chi Primary Care Provider DO Jeremiah Schmitz Attending Provider [phone] DO Liz Chi Primary Care Provider Liz Chi Primary Care Unavailable Giovanna Rea Attending Unavailable Giovanna Rea Admitting Unavailable Jeremiah Schmitz Attending Unavailable Jeremiah Schmitz Admitting Unavailable Liz Chi Primary Care Unavailable Self, Referral Attending Unavailable Self, Referral Admitting Unavailable Liz Chi Primary Care Unavailable DO Liz Chi Primary Care Provider DO Giovanna Rea Attending Provider JEREMIAH SCHMITZ Attending Unavailable JEREMIAH SCHMITZ Referring Unavailable JEREMIAH SCHMITZ Attending Unavailable Girvin MD, Liz C Primary Care Provider Allergies Allergy Classification Reported Allergen(s) Allergy Type Date of Onset Reaction(s) Facility (10 sources) Penicillins Drug allergy (disorder) 9 [facility] (6 sources) Penicillin Drug Allergy [facility] Other (13 sources) penicillAMINE Drug Allergy 3 [facility] (16 sources) Covid-19 (Subunit) Vaccine Drug allergy 3 [facility] (2 sources) Midodrine Drug Allergy 3 [facility] Work Phone: (2 sources) Penicillins Drug Allergy 3 [facility] Medications Current Medications Medication Drug Class(es) Dates Sig (Normalized) Sig (Original) [id number] actuat albuterol 0.09 mg/actuat metered dose [...] sulfate 5 mg extended release oral capsule (20 sources) Central Nervous System Stimulant Start: 03-01-2024 End: 09-03-2024 take 20 mg by mouth once daily in the morning Dextroamphetamine-Amphetamine Active 20 MG PO Every morning September 03, 2024 Start: 01-06-2024 take 1 capsule by mo uth every twenty-four hours Amphetamine-Dextroamphet ER 20 MG 1 capsule in the morning Orally Once a day for 30 days Dec, Active Start: 11-07-2023 take 1 capsule by mo uth every twenty-four hours Amphetamine-Dextroamphet ER 20 MG 1 capsule in the morning Orally Once a day for 30 days Oct, Active Start: 10-07-2023 take 1 capsule by mo uth every twenty-four hours Amphetamine-Dextroamphet ER 10 MG 1 capsule in the morning Orally Once a day for 30 days Sep, Active Start: 09-08-2023 take 1 tablet by cyrus th in the morning amphetamine-dextroamphetamine (Adderall) 10 MG tablet Take 10 mg by mouth in the morning. 09/08/2023 Active cetirizine hydrochloride 10 mg oral tablet (20 sources) Histamine-1 Receptor Antagonist Start: 04-06-2024 take 1 tablet by mouth once daily Cetirizine (Zyrtec) 10 mg tablet Active 10 MG PO Daily April 06, 2024 12:00am take 2 tablets by mouth in the m orning cetirizine (ZyrTEC) 5 MG tablet Take 10 mg by mouth in the morning. Active take 1 tablet by cyrus th every twenty-four hours ZyrTEC Allergy 10 MG 1 tablet Orally Onc e a day prn Active D-Mannose - (9 sources) D-Mannose - as d irected Orally Active D-MANNOSE PO (2 sources) D-MANNOSE PO De e by mouth. Active Fish Oils (6 sources) take 1 capsule by mo vah once daily Fish Oil 1000 MG 1 capsule Orally Once a day Active Multiple Vitamins-Minerals (WOMENS MULTI VITAMIN & MINERAL PO) (2 sources) Start: 04-06-2024 Multiple Vitamins-Minerals (WOMENS MULTI VITAMIN & MINERAL PO) 04/06/2024 Active Og-Gl-Qrfl-Fa-Ca Carb-Vit K (Women's Multivitamin) 18 mg-400 mcg- 500 mg-50 mcg tablet (4 sources) Start: 04-06-2024 take 1 tablet by mouth two times weekly Sy-Lf-Zwem-Fa-Ca Carb-Vit K (Women's Multivitamin) 18 mg-400 mcg- 500 mg-50 mcg tablet Active 1 TAB PO Twice a Week April 06, 2024 12:00am Start: 04-06-2024 Th-Bt-Kmkk-Fa- Ca Carb-Vit K (Women's Multivitamin) 18 mg-400 mcg- 500 mg-50 mcg tablet Active TAB PO April 06, 2024 12:00am nitrofurantoin, macrocrystals 25 mg / nitrofurantoin, monohydrate 75 mg oral capsule (5 sources) Nitrofuran Antibacterial Start: 10-03-2023 take 1 capsule by mouth twice daily at mealtime Macrobid 100 MG 1 capsule Orally bid with food for 7 days Aug, Active Start: 08-19-2023 take 1 capsule by mo uth every twelve hours Nitrofurantoin Monohyd Macro 100 [...] days 2-5 for 5 days Aug, Not-Taking D-Mannose (8 sources) Start: 04-06-2024 End: 08-23-2024 D-Mannose Discontinued EACH PO Daily April 06, 2024 8:48am August 23, 2024 12:53pm Start: 04-06-2024 D-Mannose Acti ve EACH PO Daily April 06, 2024 8:48am Start: 04-06-2024 End: 04-06-2024 D-Mannose Discontinued EACH PO April 06, 2024 12:00am April 06, 2024 8:48am ibuprofen 600 mg oral tablet (9 sources) Nonsteroidal Anti-inflammatory Drug Start: 12-23-2018 End: 04-06-2024 take 600 mg by mouth every six hours Ibuprofen Discontinued 600 MG PO Q6H December 23, 2018 1:00am April 06, 2024 8:37am ondansetron 4 mg oral tablet (9 sources) Serotonin-3 Receptor Antagonist Start: 12-23-2018 End: 04-06-2024 take 1 tablet by mouth every eight hours Ondansetron Hcl (Zofran) 4 mg tablet Discontinued 4 MG PO Q8H 10 3 December 23, 2018 1:00am April 06, 2024 8:38am Problems Active Problems Problem Classification Problem Date Documented Date Episodic/Chronic Allergic reactions (15 sources) Atopic dermatitis; Translations: [Atopic dermatitis, unspecified] Chronic Allergic reactions (1 source) Urticaria, unspecified Episodic Anxiety disorders (15 sources) Anxiety; Translations: [Anxiety disorder, unspecified] Chronic Asthma (2 sources) Exercise induced bronchospasm; Translations: [Exercise induced bronchospasm] Onset: 02-17-2012 06-13-2023 Chronic Attention-deficit, conduct, and disruptive behavior disorders (8 sources) Attention deficit hyperactivity disorder; Translations: [Attention-deficit hyperactivity disorder, unspecified type] 03-01-2024 Chronic Attention-deficit, conduct, and disruptive behavior disorders (7 sources) Attention-deficit hyperactivity disorder, unspecified type; Translations: [Attention deficit disorder with hyperactivity] Chronic Genitourinary symptoms and ill-defined conditions (2 sources) Genuine stress incontinence; Translations: [Stress incontinence (female) (male)] Onset: 06-13-2023 06-13-2023 Chronic Genitourinary symptoms and ill-defined conditions (1 source) Frequency of micturition Episodic Menstrual disorders (4 sources) Dysmenorrhea; Translations: [Dysmenorrhea, unspecified] Onset: 06-13-2023 06-13-2023 Chronic Other circulatory disease (1 source) Other specified symptoms and signs involving the circulatory and respiratory systems Episodic Other endocrine disorders (15 sources) Hypoglycemia; Translations: [Hypoglycemia, unspecified] Chronic Other nervous system disorders (2 sources) Chronic pain; Translations: [Other chronic pain] Onset: 06-13-2023 06-13-2023 Chronic Other screening for suspected conditions (not mental disorders or infectious disease) (10 sources) Patient encounter status; Translations: [Encounter for screening for malignant neoplasm of colon] Onset: 06-13-2023 07-06-2024 Episodic Other skin disorders (1 source) Localized swelling, mass and lump, unspecified Episodic Other upper respiratory disease (2 sources) Chronic rhinitis; Translations: [Chronic rhinitis] Onset: 06-13-2023 06-13-2023 Chronic Other upper respiratory disease (1 source) Other specified disorders of nose and nasal sinuses Episodic Residual codes; unclassified (1 source) Pain, unspecified Episodic Urinary tract infections (17 sources) Chronic interstitial cystitis; Translations: [Interstitial cystitis (chronic) without hematuria] Onset: 03-29-2013 06-13-2023 Chronic Urinary tract infections (1 source) Urinary tract infection, site not specified Episodic Past or Other Problems Problem Classification Problem Date Documented Da te Episodic/Chronic Cardiac dysrhythmias (2 sources) Tachycardia; Translations: [Tachycardia, unspecified] Onset: 03-29-2013 06-13-2023 Episodic Nonmalignant breast conditions (3 sources) Unspecified lump in unspecified breast; Translations: [Cyst of left breast] Onset: 06-16-2023 Episodic Other nutritional; endocrine; and metabolic disorders (1 source) Abnormal weight loss Onset: 07-16-2022 Resolved: 07-16-2022 Episodic Other skin disorders (2 sources) Asteatosis cutis; Translations: [Xerosis cutis] Onset: 08-11-2023 08-11-2023 Episodic Unclassified (1 source) Cough R05.9 Results Test Name Value Interpretation Reference Range Facility HCG ( test) Jacob d Ql (U)Ordered By: Giovanna Rea on 09-06-2024 HCG ( test) Ql (U) Negative [facility] HCG,Urineon 09-06-2024 Beta HCG ( test) Ql (U) Negative Normal [facility] Comment on above: Result Comment: PERF ORMED BY: [place] [address] PATHOLOGIST DUSTLESS OPERATOR RODRICK HERRERA M.D. Performed By: #### U HCG #### [address] Laboratory - Chemistry and C hemistry - challengeon 05-10-2024 Bilirubin Ql (U) Negative NEGATIVE [facility] Glucose (U) [Mass/Vol] Negative NEGATIVE [facility] Ketones Ql (U) Negative NEGATIVE [facility] pH (U) 6.5 [pH] 5.0-9.0 [facility] Specific gravity (U) [Rel density] <=1.005 Abnormal 1.005-1.025 [facility] Urobilinogen Qn (U) 0.2 {Maxi'U}/dL 0.2-1.0 [facility] Laboratory - Specimen inform ationon 05-10-2024 Appearance (U) CLEAR CLEAR [facility] Color (U) LT. YELLOW YELLOW [facility] Laboratory - Urinalysison Leukocyte esterase Test strip Ql (U) SMALL Abnormal NEGATIVE [facility] Mucus Ql (Urine sed) NONE SEEN NONE SEEN [facility] Nitrite Ql (U) Negative NEGATIVE [facility] Protein Ql (U) Negative NEG/TRACE [facility] No Panel Informationon 05-10 Urine Bacteria SMALL #/HPF Abnormal NONE SEEN [facility] Urine Culture Reflexed ALREADY ORDERED [facility] Urine Occult Blood TRACE-I NEGATIVE [facility] Urine Other Casts NONE SEEN #/LPF NONE [facility] U[facility] Other Crystals None Seen #/HPF None Seen [facility] Urine RBC 0-2 #/HPF 0-2 [facility] Urine Squamous Epithelial Cells RARE #/LPF NONE/RARE [facility] Urine WBC 2-5 #/HPF Abnormal NONE SEEN [facility] US transvaginalon 05-03-2024 US transvaginal [facility] [place] [address] Ultrasound Report Signed Patient: Jennifer Collins MR#: [id number] 8 : 1980 Acct:[id number] Age/Sex: 44 / F ADM Date: 05/03/24 Loc: Room: Type: [facility] CLI Attending Dr: Jeremiah Schmitz DO Ordering Provider: Jeremiah Schmitz DO Date of Service: 05/03/24 US/US pelvic complete: R10.2 ([id number]) US/US transvaginal: R10.2 Copies to: Jeremiah Schmitz [...] Eligio Esteban M.D.05/03/2024 6:39 PM Dictation Location: [place] [address] Tech: Maureen Lopes Transcribed By: JULIEN 05/03/241838 Dictated By: Eligio Esteban II, MD 05/03/241834 Signed By: 05/03/241838 Normal [facility] MM screening mammo BI w/CADo n 02-17-2024 MM screening mammo BI w/CAD [facility] [place] [address] [place] [address] Mammography Report Signed Patient: Jennifer Collins MR#: [id number] 8 : 1980 Acct:[id number] Age/Sex: 44 / F ADM Date: 02/17/24 Loc: CT Room: Type: [facility] Attending Dr: Referral Self Copies to: Liz Chi, SELF,REFERRAL Ordering Provider: SELF,REFERRAL Date of Service: [...] Yesenia Raymundo M.D.02/17/2024 12:56 PM Dictation Location: [facility] Transcribed By: [facility] 02/17/24 1256 Dictated By: Yesenia Raymundo MD 02/17/24 1251 Signed By: 02/17/24 1256 Normal [facility] Hep Bs Abon 04-28-2023 HBV surface Ab Ql (S) Reactive Invalid Interpretation Code [facility] Comment on above: Result Comment: Non Reactive: Inconsistent with immunity, less than 10 mIU/mL Reactive: Consistent with immunity, greater than 9.9 mIU/mL Performed at: [facility] [address] [id number] PhD Baldev Arteaga Performed By: #### 2 [id number] #### [facility] [address] [place] [address] Quantiferon-TB Plus (Client Incubated)on 01-24-2023 Gamma interferon background IA Qn (Bld) 0.01 International_Unit/m L Invalid Interpretation Code [facility] Comment on above: Performed By: #### 2 485381, [id number], [id number] #### [facility] [address] [place] [address] M. tuberculosis stim IFN-g by CD4+ CD8+ T-cells Qn (Bld) 0.01 International_Unit/m L Invalid Interpretation Code [facility] Comment on above: Performed By: #### 2 129533, [id number], [id number], [id number] #### [facility] [address] [place] [address] 22090 M. tuberculosis stim IFN-g by CD4+ T-cells Qn (Bld) 0.02 International_Unit/m L Invalid Interpretation Code [facility] Comment on above: Performed By: #### 2 792453, [id number], [id number], [id number] #### [facility] [address] [place] [address] 66848 M. tuberculosis stim IFN-g Ql (Bld) [Interp] Negative Invalid Interpretation Code Negative [facility] Comment on above: Result Comment: No r [...] interferon gamma. Chemiluminescence immunoassay methodology Performed at: [address] [id number] PhD Baldev Arteaga Performed By: #### 2 404751, [id number], [id number], [id number] #### [facility] [address] [place] [address] Mitogen stimulated gamma interferon Qn (Bld) >10.00 Invalid Interpretation Code [facility] Comment on above: Performed By: #### 2 474746, [id number], [id number], [id number] #### [facility] [address] [place] [address] Service comment (Unsp spec) [Interp] Comment Invalid Interpretation Code [facility] Comment on above: Result Comment: Drew tiFERON-TB [...] for the test. Performed By: #### 2 205202, [id number], [id number], [id number] #### [facility] [address] [place] [address] Hep Bs Abon 01-22-2023 HBV surface Ab Ql (S) Non-Reactive Invalid Interpretation Code [facility] Comment on above: Result Comment: Non Reactive: Inconsistent with immunity, less than 10 mIU/mL Reactive: Consistent with immunity, greater than 9.9 mIU/mL Performed at: [address] [id number] PhD Baldev Arteaga Performed By: #### 2 196447, [id number], [id number], [id number] #### [facility] [address] [place] [address] Measles/Mumps/Rubella Immuni tyon 01-22-2023 MeV IgG IA Qn (S) 78.0 A unit/mL Invalid Interpretation Code Immune >16.4 [facility] Comment on above: Result Comment: Nega tive <13.5 Equivocal 13.5 - 16.4 Positive >16.4 Presence of antibodies to Rubeola is presumptive evidence of immunity except when acute infection is suspected. Performed By: #### 2 222348, [id number], [id number], [id number] #### [facility] [address] [place] [address] MuV IgG IA Qn (S) 96.3 A unit/mL Invalid Interpretation Code Immune >10.9 [facility] Comment on above: Result Comment: Nega tive <9.0 Equivocal 9.0 - 10.9 Positive >10.9 A positive result generally indicates past exposure to Mumps virus or previous vaccination. Performed at: [address] [id number] PhD Baldev Arteaga Performed By: #### 2 252107, [id number], [id number], [id number] #### [facility] [address] [place] [address] Rubella virus IgG Qn (S) 30.40 [IU]/mL Invalid Interpretation Code Immune >0.99 [facility] Comment on above: Result Comment: Non- immune <0.90 Equivocal 0.90 - 0.99 Immune >0.99 Performed By: #### 2 678577, [id number], [id number], [id number] #### [facility] [address] [place] [address] Varic IgGon 01-22-2023 VZV IgG IA Qn (S) 1663 Invalid Interpretation Code Immune >165 [facility] Comment on above: Result Comment: Nega tive <135 Equivocal 135 - 165 Positive >165 A positive result generally indicates exposure to the pathogen or administration of specific immunoglobulins, but it is not indication of active infection or stage of disease. Performed at: [address] [id number] PhD Baldev Arteaga Performed By: #### 2 759658, [id number], [id number], [id number] #### [facility] [address] [place] [address] COVID-19 Detected/Not Detect edOrdered By: Liz Chi on 11-16-2022 SARS-CoV-2 (COVID-19) RNA REX+non-probe Ql (Nph) Not detected Not Detecte [facility] Comment on above: This is a duplicate RP2.1 COVID (PCR) result to be used for statistical tracking purpose only. No Panel InformationOrdered By: Liz Chi on 11-16-2022 Respiratory Panel (PCR) [facility] Urine culture routineOrdered By: Jeremiah Schmitz on 09-05-2022 Bacteria identified Cx Nom (U) 2 Days [facility] Human papilloma virus 16+18+ 31+33+35+39+45+51+52+56+58+59+66+68 DNA [Presence] in CerOrdered By: Jeremiah Schmitz on 09-03-2022 HPV 16+18+31+33+35+39+45+5 1+52+56+58+59+66+68 DNA Probe+sig amp Ql (Cvx) Negative Negative [facility] Comment on above: This nucleic acid am plification test detects fourteen high- risk HPV types (16,18,31,33,35,39,45,51,52,56,58,59,66,68)without differentiation.Performed at: [facility] [id number] [place], [place] [id number] Director: Peterson Alfonso MD, Phone: [phone] at: =[facility] [address] [id number] Director: Chelsey Akers MD, Phone: [phone] No Panel InformationOrdered By: Jeremiah Schmitz on 09-03-2022 IG Pap w/Ct-Ng & HPV Rflx (Off-Site Note . [facility] Comment on above: TESTS RESULT FLAG UN ITS REF RANGE LAB Clinician Provided Cytology Information No. of containers..01 ThinPrep VialDIAGNOSIS: 01 NEGATIVE FOR INTRAEPITHELIAL LESION OR MALIGNANCY.Specimen adequacy: 01 Satisfactory for evaluation. Endocervical and/or squamous metaplastic cells (endocervical component) are present.Performed by: Annie Rueda Logistics Service Representative (ASCP). 01Note: Note 02 The Pap smear [...] <-Panic Low,>-Panic High,A-Abnormal,AA-Critical Abnormal -----Performed at:01 [facility] [address] [place] [id number] Peterson Alfonso MD, [address] [facility] [address] [id number] Chelsey Akers MD, Vital Signs Date Time Vital Sign Value Performing Clinician Facility 10-12-2024 08:15-0500 Body mass index (BMI) [Ratio] 20.28 kg/m2 Jeremiah MoorePfenex Work Phone: [facility] 10-12-2024 08:15-0500 Body weight 54.43 kg Jeremiah Visci DO Work Phone: [facility] 10-12-2024 08:15-0500 Diastolic blood pressure 88 mm[Hg] Jeremiah Visci DO Work Phone: [facility] 10-12-2024 08:15-0500 Systolic blood pressure 122 mm[Hg] Jeremiah Visci DO Work Phone: [facility] 09-06-2024 13:06-0400 Diastolic blood pressure 76 mm[Hg] DO Liz Chi Work Phone: [facility] 09-06-2024 13:06-0400 Heart rate 69 /min DO Liz Chi Work Phone: [facility] 09-06-2024 13:06-0400 Respiratory rate 16 /min DO Liz Chi Work Phone: [facility] 09-06-2024 13:06-0400 SaO2% (BldA) [Mass fraction] 99 % DO Liz Chi Work Phone: [facility] 09-06-2024 13:06-0400 Systolic blood pressure 115 mm[Hg] DO Liz Chi Work Phone: [facility] 09-06-2024 10:11-0400 Body height 162.56 cm DO Liz Chi Work Phone: [facility] 09-06-2024 10:11-0400 Body temperature 98.3 [degF] DO Liz Chi Work Phone: [facility] 09-06-2024 10:11-0400 Body weight 55.79 kg DO Liz Chi Work Phone: [facility] 05-27-2023 11:10-0400 Body height 162.56 cm Liz Gordonisaiah Other [employer] Other 05-27-2023 11:10-0400 Body mass index (BMI) [Ratio] 21.97 kg/m2 Liz Chi Other [employer] Other 05-27-2023 11:10-0400 Body temperature 98.5 [degF] Liz Gordonisaiah Other [employer] Other 05-27-2023 11:10-0400 Body weight 58.06 kg Liz Evanisaiah Other [employer] Other 05-27-2023 11:10-0400 Diastolic blood pressure 72 mm[Hg] Liz Chi Other [employer] Other 05-27-2023 11:10-0400 Respiratory rate 16 /min Liz Chi Other [employer] Other 05-27-2023 11:10-0400 SaO2% (BldA) [Mass fraction] 99 % Liz Chi Other [facility] Other 05-27-2023 11:10-0400 Systolic blood pressure 110 mm[Hg] Liz Chi Other [employer] Other 07-16-2022 11:30-0400 Body height 162.56 cm Liz Chi Other [employer] Other 07-16-2022 11:30-0400 Body mass index (BMI) [Ratio] 21.63 kg/m2 Liz Chi Other [employer] Other 07-16-2022 11:30-0400 Body temperature 98.1 [degF] Liz Chi Other [employer] Other 07-16-2022 11:30-0400 Body weight 57.15 kg Liz Chi Other [employer] Other 07-16-2022 11:30-0400 Diastolic blood pressure 70 mm[Hg] Liz Chi Other [employer] Other 07-16-2022 11:30-0400 Respiratory rate 16 /min Liz Chi Other [employer] Other 07-16-2022 11:30-0400 SaO2% (BldA) [Mass fraction] 98 % Liz Chi Other [employer] Other 07-16-2022 11:30-0400 Systolic blood pressure 102 mm[Hg] Liz Chi Other [facility] [employer] Other Encounters Encounter Date Encounter Type Care Provider Facility Start: 10-12-2024 End: 10-12-2024 Patient encounter status Jeremiah Schmitz DO Work Phone: [facility] Work Phone: Start: 10-12-2024 End: 10-12-2024 Periodic preventive med est patient 40-64yrs Jeremiah Schmitz DO Work Phone: [facility] Comment on above: Screening mammogram for breast cancer (Primary Dx); Encounter for gynecological examination with abnormal finding; Encounter for screening mammogram for malignant neoplasm of breast Start: 10-12-2024 End: 10-12-2024 ambulatory JEREMIAH SCHMITZ Not Available Start: 09-06-2024 Non-patient / Non-visit DO Jose Antonio Chi Work Phone: [facility] Gastroenterology Work Phone: Start: 09-06-2024 End: 09-06-2024 Admission to same day surgery center DO Liz Chi Work Phone: [facility] Work Phone: Start: 09-06-2024 End: 09-06-2024 ambulatory Liz Chi Facility:[facility] Start: 07-06-2024 End: 07-06-2024 ambulatory DO Liz Chi Work Phone: [facility] Work Phone: Start: 07-06-2024 End: 07-06-2024 Patient encounter procedure DO Liz Chi Work Phone: [facility] Family [facility] [place] Work Phone: Start: 05-10-2024 Non-patient / Non-visit DO Jose Antonio id Sheridan Work Phone: [facility] [employer] Work Phone: Start: 05-03-2024 End: 05-03-2024 ambulatory DO Liz Chi Work Phone: [facility] Work Phone: Start: 05-03-2024 End: 05-03-2024 Patient encounter procedure DO Liz Chi Work Phone: [facility] [place] Work Phone: Start: 04-30-2024 End: 04-30-2024 ambulatory JEREMIAH MOOREYoshi Not Available Start: 04-06-2024 End: 04-06-2024 ambulatory DO Liz Chi Work Phone: [facility] Work Phone: Start: 04-06-2024 End: 04-06-2024 Patient encounter procedure DO Liz Chi Work Phone: [facility] Work Phone: Start: 03-01-2024 Non-patient / Non-visit DO Jose Antonio Chi Work Phone: [facility] [facility] Work Phone: Start: 02-17-2024 End: 02-17-2024 Patient encounter procedure DO Liz Chi Work Phone: [facility] Work Phone: Start: 02-17-2024 End: 02-17-2024 ambulatory DO Liz Chi Work Phone: [facility] Work Phone: Start: 01-06-2024 End: 01-06-2024 ambulatory Liz Chi Other [facility] [employer] Other Start: 01-06-2024 Office outpatient vi sit 15 minutes Liz Chi [facility] Start: 11-07-2023 End: 11-07-2023 ambulatory Liz Chi Other [facility] [employer] Other Start: 11-07-2023 Telephone encounter Liz Chi [facility] Start: 10-24-2023 End: 10-24-2023 ambulatory Liz Chi Other [employer] Other Start: 10-24-2023 Telephone encounter Liz Chi [facility] Start: 09-08-2023 End: 09-08-2023 ambulatory Liz Chi Other [employer] Other Start: 09-08-2023 Telephone encounter Liz Chi [facility] Start: 08-30-2023 End: 08-30-2023 ambulatory Liz Chi Other [employer] Other Start: 08-30-2023 Telephone encounter Liz Chi [facility] [place] Start: 08-29-2023 End: 08-29-2023 ambulatory Liz Chi Other [employer] Other Start: 08-29-2023 Telephone encounter Liz Chi [facility] Start: 08-21-2023 End: 08-21-2023 ambulatory Alexandra Anderson Other [employer] Other Start: 08-21-2023 Telephone encounter Alexandra [facility] [place] Start: 08-20-2023 End: 08-20-2023 ambulatory Liz Chi Other [employer] Other Start: 08-20-2023 Telephone encounter Liz Chi [facility] Start: 08-19-2023 End: 08-19-2023 ambulatory DO Liz Chi Work Phone: [facility] Work Phone: Start: 08-19-2023 End: 08-19-2023 Departed Referred DO Liz Chi Work Phone: [facility] [place] Work Phone: Start: 06-10-2023 End: 06-10-2023 ambulatory DO Liz Chi Work Phone: [facility] Work Phone: Start: 06-10-2023 End: 06-10-2023 Patient encounter procedure DO Liz Chi Work Phone: [facility] Start: 05-27-2023 End: 05-27-2023 ambulatory Liz Chi Other [employer] Other Start: 05-27-2023 Encounter for genera l adult medical examination without abnormal findings Liz hCi [facility] [place] Start: 05-27-2023 Periodic preventive med est patient 40-64yrs Liz Chi [facility] [place] Start: 04-26-2023 End: 04-27-2023 ambulatory Akila T [facility] Start: 04-19-2023 End: 04-20-2023 ambulatory Akila T [facility] Start: 01-21-2023 End: 01-22-2023 ambulatory Akila T [facility] Facility:[facility] Start: 11-17-2022 End: 11-17-2022 ambulatory Liz Chi Other [employer] Other Start: 11-17-2022 Telephone encounter Liz Chi [facility] Start: 11-16-2022 End: 11-16-2022 Patient encounter procedure DO Liz Chi Work Phone: [facility] Start: 11-16-2022 End: 11-16-2022 ambulatory DO Liz Chi Work Phone: [facility] Work Phone: Start: 11-16-2022 Telephone encounter Liz Chi [facility] [place] Start: 11-01-2022 End: 11-01-2022 ambulatory Liz Chi Other [employer] Other Start: 11-01-2022 Telephone encounter Liz Chi [facility] [place] Start: 09-30-2022 End: 09-30-2022 Patient encounter procedure DO Liz Chi Work Phone: [facility] Start: 09-22-2022 End: 09-22-2022 ambulatory Liz Chi Other [employer] Other Start: 09-22-2022 Telephone encounter Liz Chi [facility] Start: 09-03-2022 End: 09-03-2022 ambulatory DO Liz Chi Work Phone: [facility] Work Phone: Start: 09-03-2022 End: 09-03-2022 Departed Referred DO Liz Chi Work Phone: [facility] [place] Start: 07-16-2022 End: 07-16-2022 ambulatory Liz Chi Other [employer] Other Start: 07-16-2022 Encounter for genera l adult medical examination without abnormal findings Liz Chi [facility] Start: 07-16-2022 Periodic preventive med est patient 40-64yrs iLz Chi [facility] Start: 11-30-2021 End: 11-30-2021 ambulatory Liz Chi Other [employer] Other Start: 11-30-2021 Telephone encounter Liz Chi [facility] Start: 12-05-2019 Patient encounter procedure LIZ CHI Facility: Procedures Date Procedure Procedure Detail Performing Clinician Start: 09-06-2024 Screening colonoscopy D O Liz Chi Work Phone: Start: 05-03-2024 Pelvic echography DO Andrea Chi Work Phone: Start: 05-03-2024 Transvaginal echography DO Liz Chi Work Phone: Start: 02-20-2024 Mammography Jeremiah de DO Work Phone: Start: 02-17-2024 Screening mammograph y of bilateral breasts DO Liz Chi Work Phone: Start: 06-10-2023 Ultrasonography of l eft breast DO Liz Chi Work Phone: Start: 09-30-2022 Screening mammograph y of bilateral breasts DO Liz Chi Work Phone: Respiratory Panel (PCR) DO Guillermo Chi Work Phone: Urine culture DO Liz Mclain n Work Phone: Plan of Treatment Date Care Activity Detail Author Start: 10-17-2025 End: 10-17-2025 Patient encounter procedure 10/17/2025 10:15 AM EST Office Visit [facility] [address] [place] [id number] Jeremiah Schmitz, DO [address] [place] [address] [facility] Start: 02-19-2025 Screening for malign ant neoplasm of breast Mammogram [facility] Start: 02-18-2025 End: 12-12-2025 DBT Breast - bilateral screening Bilateral screening mammogram with tomosynthesis Imaging Routine Screening mammogram for breast cancer Expected: 02/18/2025, Expires: 12/12/2025 [facility] Work Phone: Comment on above: Expected: 02/18/2025 , Expires: 12/12/2025 Start: 09-06-2024 [facility] Start: 07-29-2024 Influenza vaccination Influenza Vacc ine (#1) [facility] Start: 07-06-2024 Patient referral [facility] Work Phone: Start: 08-19-2023 Bacteria identified in Urine by Culture [facility] Start: 2009 Screening for malign ant neoplasm of cervix [facility] Start: 02-06-2000 Screening for malign ant neoplasm of cervix Pap Smear [facility] Start: 1979 Screening for malign ant neoplasm of colon [facility] Bacteria identified in Urine by Culture [facility] Human papilloma viru s 16+18+31+33+35+39+45+51+ 52+56+58+59+66+68 DNA [Presence] in Cervix by Probe with signal amplification [facility] Work Phone: Patient Education Hemorrhoids (D C) Know your Meds [facility] Work Phone: Patient referral [facility] Work Phone: Immunizations Immunization Date Immunization Notes Care Provider Michelle varela 03-22-2023 Hepatitis B vaccine (recombinant), CpG adjuvanted DO Liz Chi Work Phone: [facility] 02-23-2023 Hepatitis B vaccine (recombinant), CpG adjuvanted DO Liz Chi Work Phone: [facility] 11-14-2021 COVID-19 Vaccine Moderna - Documentation Purposes Only Liz Chi Other [facility] 09-14-2021 influenza, seasonal, injectable Liz Chi Other [facility] 09-14-2021 influenza virus vaccine, unspecified formulation Jeremiah Schmitz DO Work Phone: [facility] 07-29-2021 influenza, injectabl e, quadrivalent, preservative free Jeremiah Moorei DO Work Phone: [facility] 01-01-2021 COVID-19 Vaccine Moderna - Documentation Purposes Only Liz Chi Other [facility] 12-04-2020 COVID-19 Vaccine Moderna - Documentation Purposes Only Liz Chi Other [facility] 08-28-2018 influenza, seasonal, injectable, preservative free DO Liz Chi Work Phone: [facility] 08-31-2016 seasonal influenza, intradermal, preservative free DO Liz Chi Work Phone: [facility] Payers Date Payer Category Payer Private Health Insurance [employer] [id number] 2023 Unknown [id number] 2020 Unknown [id number] 1979 Unknown [id number] 1979 Unknown [id number] 1979 Unknown [id number] 1959 Self-pay Unknown Regular [employer] [id number] Social History Date Type Detail Facility Unknown if ever smoked [employer] Other Start: 09-15-2023 End: 04-30-2024 Sex Assigned At [employer] Other Start: 12-23-2018 End: 08-11-2023 Tobacco smoking status [facility] Ex-smoker (finding) [facility] Start: 1980 Sex Assigned At Female [facility] End: 11-28-2000 History of tobacco use Current smoker [facility] End: 11-28-2000 History of tobacco use Cigarette Smoker [facility] Start: 10-12-2024 Alcoholic beverage intake Current drinker of alcohol (finding) [facility] Start: 09-15-2023 End: 04-30-2024 History of Social function [facility] How often to you hav e a drink containing alcohol? Monthly or less [facility] How many standard drinks containing alcohol do you have on a typical day? 1 or 2 [facility] How often do you hav e 6 or more drinks on 1 occasion? Never [facility] Start: 08-11-2023 Alcohol Comment Caffeine intake: 1-2 cups per day [facility] Start: 09-16-2023 Gender identity Identifies as female gender (finding) [facility] Start: 09-16-2023 Sexual orientation Heterosexual (finding) [facility] Goals Date Patient Goal Desired Activity /State Clinical Notes 07-21-2012 to 10-12-2024 Jeremiah Schmitz, DO - 10/12/2024 8:15 AM EST Note Date & Type Note Facility 10-12-2024 History of Present illness Narrative Images from the original note were not included. Jeremiah Schmitz, Obstetrics and Gynecology Jennifer Collins 1980 10/09/24 [id number] Yearly Wellness Exam No chief complaint on file. Visit Vitals OB Status Having periods Smoking Status Former History of Present Illness The patient presents for her annual checkup. She reports regular menstrual cycles, typically lasting for 5 days. She experiences cramping during her periods, which was previously severe but has lessened over the past 6 to 8 months. She recalls a particularly intense episode of pain, distinct from her usual menstrual cramps, which was investigated and found to be non-concerning. She occasionally takes D-mannose for bladder health. She reports no recent bladder infections but admits to experiencing urgency and occasional leakage. She has used a device to manage this, which she found helpful. She reports no changes in bowel habits. A recent colonoscopy revealed a curvature in her intestines, but no polyps or other concerns were identified. She has not noticed any changes or lumps in her breasts, but mentions a previously examined lump that was deemed non-concerning. FAMILY HISTORY She denies any family history of breast cancer. Current Outpatient Medications Medication Sig Dispense Refill amphetamine-dextroamphetamine (Adderall) 10 MG tablet Take 10 mg by mouth in the morning. cetirizine (ZyrTEC) 5 MG tablet Take 10 mg by mouth in the morning. D-MANNOSE PO Take by mouth. Multiple Vitamins-Minerals (WOMENS MULTI VITAMIN & MINERAL PO) No current facility-administered medications for this visit. Allergies Allergen Reactions Covid-19 (Subunit) Vaccine Other Reaction(s): hives Midodrine Other Reaction(s): Hypertension Penicillins Hives Past Medical History: Diagnosis Date Appendicitis Asthma, exercise induced (CMS/HCC) Tx inhaler Breast lump History of medical problems Recurrent, cyclic pain with menses effecting bowels, abdomen, and upper extremity Past Surgical History: Procedure Laterality Date APPENDECTOMY COLONOSCOPY 09/06/2024 repeat 5 years (Dr. Rea) [place] BREAST AUGMENTATION WITH IMPLANT Breast implants TONSILLECTOMY VAGINAL DELIVERY x3: 2010 (), 2005 (3hr labor ). 2003 (5hr ) OB History Para Term AB Living 4 1 4 SAB IAB Ectopic Multiple Live Births 1 3 # Outcome Date GA Lbr Roosevelt/2nd Weight Sex Type Anes PTL Lv 4 3 2 1 SAB Obstetric Comments Pap 09/03/22- Neg, HPV Neg Mammogram 02/17/24- Neg ([facility] Colonoscopy 09/06/24- repeat 5 years d/t fam hx (Dr. Rea) ROS General: Denies fevers/chills Eyes: Denies vision changes ENT: Denies neck stiffness, neck mass Endocrine: Denies polydipsia and polyuria Respiratory: Denies shortness of breath Cardiovascular: Denies chest pain and palpitations Gastrointestinal: Denies changes in bowel habits, blood in stool, constipation and diarrhea. Hematology: Denies easy bruising. Women Only: Denies breast masses, skin changes, nipple discharge, abnormal bleeding, pelvic pain and dyspareunia Genitourinary: Denies dysuria, pelvic pain and nocturia Skin: Denies rashes/lesions Neurologic: Denies headaches, dizziness, syncope Psychiatric: Denies hallucinations, suicidal ideas EXAM GENERAL EXAMINATION: Alert, oriented, well developed, well nourished. HEAD: Normocephalic, atraumatic. EYES: MICHEL, sclera anicteric. EARS: No obvious hearing deficit. NECK/THYROID: Neck supple no cervical lymphadenopathy no thyromegaly. LYMPH NODES: No axillary, supraclavicular or inguinal adenopathy. SKIN: Warm and dry. No rashes HEART: Regular rate and rhythm. No murmur LUNGS: Clear to auscultation bilaterally. CHEST: Axillary nodes grossly normal. BREASTS: No dominant masses palpable bilaterally, no skin changes, nipple discharge, or supra-clavicular adenopathy. Bilateral breast implants. Small lump (<1cm) under rt. axillae c/w lymph node-no change. Lt axillae negative ABDOMEN: Soft, nontender, nondistended, no hernia or masses palpable. BACK: No obvious scoliosis/kyphosis. FEMALE GENITOURINARY: EFG without sores/lesions, normal vaginal mucosa-no discharge, cervix without lesions, uterus AV, NSSC, no adnexal masses, cul-de-sac negative. EXTREMITIES No edema. NEUROLOGIC: Alert and oriented. PSYCH: Cooperative with exam. ICD-10-CM 1. Encounter for gynecological examination with abnormal finding Z01.411 2. Encounter for screening mammogram for malignant neoplasm of breast Z12.31 Assessment & Plan Advised pt to perform monthly self breast exams. Encouraged calcium and Vitamin D intake. 1. Annual checkup. Her Pap smear from 2 years ago was negative. The physical examination today was normal, with no masses detected in the uterus. A mammogram is scheduled for January 2025. She is advised to monitor the lump in her axillae monthly to ensure it does not increase in size or develop additional lumps. She is also recommended to take calcium and vitamin D supplements for bone health. Should she experience any bladder issues, she is advised to resume using the device. 2. Menstrual cramps. She reports that the severity of her menstrual cramps has subsided over the last 6 to 8 months. Previously, she experienced severe cramping during bowel movements, which was suspected to be due to endometriosis. An ultrasound in April showed a dominant follicle on the right but normal ovaries. She is advised to continue monitoring her symptoms and report any changes. 3. Bladder urgency and occasional leaking. She experiences urgency and occasional leaking, particularly with coughing and sneezing. She is advised to resume using the d-mannose supplement for bladder health when she remembers. Additionally, she is encouraged to use the biofeedback device connected to an giuseppe, which previously seemed effective. 4. Health Maintenance. A mammogram is scheduled for January 2025. She is advised to monitor the lump in her breast monthly. She is also recommended to take calcium and vitamin D supplements for bone health. documented in this encounter [facility] 09-06-2024 Procedure note [facility] 07-06-2024 Evaluation note Authored July 06, 2024 8:4 5am The above note written by __ _Raffi Clarke____ acting as human recorder, note dictated by Dr. Duggan .I performed the above HPI, ROS, and Examination. I formulated and dictated the treatment plan and was present for entire encounter. Liz Chi D.O. [facility] Work Phone: 1(397) 990-646805-10-2024 Evaluation note* Author Liz Chi [facility] Authored April 06, 2024 9:09a m The above note written by __ _Raffi Clarke____ acting as human recorder, note dictated by Dr. Duggan .I performed the above HPI, ROS, and Examination. I formulated and dictated the treatment plan and was present for entire encounter. Liz Chi D.O. [facility] Work Phone: [phone]) 271-463802-09-2024 Evaluation note* Encounter Date Diagnosis Assessment Notes [...] great on this current dose. We discussed jail studies and how long she can be on the medication for. She had done some research on the medication and was concerned about developing tremors. Her mother has tremors from an anxiety medicine that she was on years ago and Jennifer was concerned when she read that the stimulant could cause tremors after being on jail. I did explain to her that I am not aware of any studies that show that this medication is harmful jail. For her the benefits outweigh the risks, she voices that when she takes the medicine she feels normal she can engage in conversation and is not running all over the place. She would like to continue with the medicine. Dec, Other 10:13 AM - 10:31 AM [employer] Other 12-11-2023 Evaluation note* Encounter Date Diagnosis Assessment Notes Treatment Notes Treatment Clinical Notes Oct, ADHD (ICD-10 - F90.9) [employer] Other 11-27-2023 History general Narrative - Reported* Type Description Date Medical History Pap and pelvic 3-2011; Dr. Schmitz Medical History No history of Mammogram, Colonos copy Medical History CT Abdomen and Pelvis over 10 ye ars ago; [facility] Medical History History of Chicken Pox Medical History Skin Cancer (squamous cell carci noma on face) Medical History [employer] [facility] [employer] Medical History Tilt Table Test; Dr. 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 An Surgical History US lt breast- l ump 08/2015 Hospitalization History T & A Hospitalization History Appendectomy Hospitalization History Childbirth , , Hospitalization History [facility] - sharp pain in chest 09/2016 [employer] Other 10-13-2023 History general Narrative - Reported* Type Description Date Medical History Pap and pelvic ; Dr. Schmitz Medical History No history of Mammogram, Colonos copy Medical History CT Abdomen and Pelvis over 10 ye ars ago; [facility] Medical History History of Chicken Pox Medical History Skin Cancer (squamous cell carci noma on face) Medical History [employer] [facility] Medical History Tilt Table Test; Dr. 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 We discussed medication today. Side effects/risks/benef its [...] Aug, Other 9:02 AM - 9:22 AM [employer] Other 10-03-2023 Evaluation note* Encounter Date Diagnosis Assessment Notes Treatment Notes Treatment Clinical Notes Aug, Acute lower UTI (urinary tract infection) (ICD-10 - N39.0) [employer] Other 10-02-2023 Evaluation note* Encounter Date Diagnosis Assessment Notes Treatment Notes Treatment Clinical Notes Aug, Urinary frequency (ICD-10 - R35.0) [employer] Other 09-24-2023 History general Narrative - Reported* Type Description Date Medical History Pap and pelvic ; Dr. 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 An Surgical History US lt breast- l ump 08/2015 Hospitalization History T & A Hospitalization History Appendectomy Hospitalization History Childbirth 04, 06, 11 Hospitalization History [facility] - sharp pain in chest 09/2016 [facility] [employer] Other 02-16-2023 History general Narrative - Reported* Type Description Date Medical History Pap and pelvic ; Dr. 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 An Surgical History US lt breast- l ump 08/2015 Hospitalization History T & A Hospitalization History Appendectomy Hospitalization History Childbirth , , 11 Hospitalization History [facility] - sharp pain in chest 09/2016 [facility] [employer] Other 12-20-2022 Evaluation note* Encounter Date Diagnosis [...] Oct, Other 2:28 PM - 2:36 PM [employer] Other 10-26-2022 History general Narrative - Reported* Type Description Date Medical History Pap and pelvic 3-2011; Dr. Schmitz Medical History No history of Mammogram, Colonos copy Medical History CT Abdomen and Pelvis over 10 ye ars ago; [facility] Medical History History of Chicken Pox Medical History Skin Cancer (squamous cell carci noma on face) Medical History [employer] [facility] Medical History Tilt Table Test; Dr. 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 An Surgical History US lt breast- l ump 08/2015 Hospitalization History T & A Hospitalization History Appendectomy Hospitalization History Childbirth , , 11 Hospitalization History [facility] - sharp pain in chest 09/2016 [employer] Other 08-19-2022 Evaluation note* Encounter Date Diagnosis [...] strong. She and her go to the [employer] [place] 2-3 times a week and do [...] that it is safe to do this. [employer] Other 02-14-2014 History general Narrative - Reported* Type Description Date Medical History Pap and pelvic 3-2011; Dr. 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 Ronye Dyer Medical History EEG 02-26-13; [facility] Medical History Heart Ultrasound 02-26-13; [facility] Medical History Chest X-Ray 02-26-13; [facility] Medical History Stress Test 02-26-13; [facility] Medical History anxiety Surgical History T & A Surgical History Appendectomy Surgical History Squamous Cell Carcin omer removed from Face Dr. An Surgical History [facility] breast- l ump 08/2015 Hospitalization History T & A Hospitalization History Appendectomy Hospitalization History Childbirth , , Hospitalization History [facility] - sharp pain in chest 09/2016 [employer] Other 12-12-2013 History general Narrative - Reported* Type Description Date Medical History Pap and pelvic ; Dr. 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 An Surgical History US lt breast- l ump 08/2015 Hospitalization History T & A Hospitalization History Appendectomy Hospitalization History Childbirth , , Hospitalization History [facility] - sharp pain in chest 09/2016 [facility] [employer] Other 10-04-2013 History general Narrative - Reported* Type Description Date Medical History Pap and pelvic 3-2011; Dr. 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 An Surgical History US lt breast- l ump 08/2015 Hospitalization History T & A Hospitalization History Appendectomy Hospitalization History Childbirth 04, 06, 11 Hospitalization History [facility] - sharp pain in chest 09/2016 [facility] [employer] Other 10-03-2013 History general Narrative - Reported* Type Description Date Medical History Pap and pelvic ; Dr. Schmitz Medical History No history of Mammogram, Colonos copy Medical History CT Abdomen and Pelvis over 10 ye ars ago; [facility] Medical History History of Chicken Pox Medical History Skin Cancer (squamous cell carci noma on face) Medical History [facility] Holter Monitor Medical History Tilt Table Test; Dr. 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 Ronye Dyer Medical History EEG 02-26-13; [facility] Medical History Heart Ultrasound 02-26-13; [facility] Medical History Chest X-Ray 02-26-13; [facility] Medical History Stress Test 02-26-13; [facility] Medical History anxiety Surgical History T & A Surgical History Appendectomy Surgical History Squamous Cell Carcin omer removed from Face Dr. An Surgical History US lt breast- l ump 08/2015 Hospitalization History T & A Hospitalization History Appendectomy Hospitalization History Childbirth 04, 06, 11 Hospitalization History [facility] - sharp pain in chest 09/2016 [facility] [employer] Other 10-02-2013 History general Narrative - Reported* Type Description Date Medical History Pap and pelvic 3; Dr. 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 An Surgical History [facility] breast- l [facility] 08/2015 Hospitalization History T & A Hospitalization History Appendectomy Hospitalization History Childbirth 04, 06, 11 Hospitalization History [facility] - sharp pain in chest 09/2016 [employer] Other 02-16-2013 History general Narrative - Reported* Type Description Date Medical History Pap and pelvic ; Dr. 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 An Surgical History lt breast- l p 08/2015 Hospitalization History T & A Hospitalization History Appendectomy Hospitalization History Childbirth , , 11 Hospitalization History [facility] - sharp pain in chest 09/2016 [employer] Other 12-06-2012 History general Narrative - Reported* Type Description Date Medical History Pap and pelvic 3; Dr. 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 An Surgical History [facility] breast- l p 08/2015 Hospitalization History T & A Hospitalization History Appendectomy Hospitalization History Childbirth , , 11 Hospitalization History [facility] - sharp pain in chest 09/2016 [employer] Other 08-24-2012 History general Narrative - Reported* Type Description Date Medical History Pap and pelvic ; Dr. 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 An Surgical History US lt breast- l ump 08/2015 Hospitalization History T & A Hospitalization History Appendectomy Hospitalization History Childbirth , , 11 Hospitalization History [facility] - sharp pain in chest 09/2016 [facility] [employer] Other Evaluation noteNo InformationNortCoates[facility] [employer] Other Evaluation noteNo assessment information available [facility] Work Phone: Evaluation noteNort twidox Other evaluation note* Diagnosis Onset Date Resolution Status ADHD (attention deficit hyperactivity disorder) acute [facility] Work Phone: Evaluation note* Diagnosis Onset Date Resolution Status ADHD (attention deficit hyperactivity disorder) acute Encounter for screening colonoscopy acute [facility] Work Phone: Evaluation note* Diagnosis Screening mammogram for breast cancer- Primary Encounter for gynecological examination with abnormal finding Encounter for screening mammogram for malignant neoplasm of breast documented in this encounter [facility] Author Giovanna Rea [facility] September 06, 2024 11:38am Note Date/Time September 06, 2024 1 1:34am [facility] [address] [place] [address] Gastroenterology H&P Signed Patient: Jennifer Collins MR#: [id number] : 1980 Acct:[id number] Age/Sex: 44 / F Adm Date: 4 Loc: Room: Type: [facility] Attending Dr: Giovanna Rea DO Copies to: Giovanna Rea, DO Liz Chi DO~ Date of Service: 09/06/2024 HISTORY & PHYSICAL: Patient's history with special attention to the cardiovascular, pulmonary systems and the current problem was reviewed with the patient immediately prior to the procedure. Present medications and doses reviewed in the EMR. Allergies and pertinent laboratory tests were also reviewedat this time in the EMR. The physical examination, as below, was then performed. Indication, assessment and HPI: 44-year-old female who presents for screening colonoscopy in pt with fam hx of colon ca in multiple 2nd degree relatives on her mothers side. No prior colonoscopy. Family history of GI malignancy? Colon ca in her maternal GM, GF and MA PHYSICAL EXAMINATION General appearance: cooperative, NAD Skin: No jaundice, no rash or lesions Head: NCAT Eyes: Anicteric Neck: Supple Lungs: Normal respiratory effort, no use of accessory muscles Abdomen: Soft, nondistended Neuro: No focal deficits, Ox3. REVIEW OF SYSTEMS Constitutional: Denies malaise, fevers Cardiovascular: Denies chest pain, palpitations Respiratory: Denies shortness of breath, wheezing Gastrointestinal: As per HPI Genitourinary: Denies dysuria, polyuria Musculoskeletal: Denies joint swelling, joint stiffness Neurological: Denies confusion, numbness, tingling Endocrine: Denies fatigue Written informed consent obtained from the patient. Risks (including but not limited to perforation, infection, bloating, bleeding, need for emergent surgeryand loss of life), benefits and alternatives explained and questions answered. The patient verbalized understanding. Based on history patient is an appropriate candidate for the procedure. Giovanna Rea DO Present medication and doses reviewed in the EMR Documented By: Giovanna Rea DO 09/06/24 1133 Signed By: <Electronically signed by Giovanna Rea DO> 09/06/24 1138 [facility] Work Phone: History general Narrative - ReportedNocox monett twidox Other History general Narrative - ReportedNocox monett twidox Other Summary Purpose Family History Relationship Condition Age at Onset Recorded Date/T sanket father History of malignant neoplasm of prostate Unknown Malignant neoplasm Unknown grandparent Family history of colon cancer Unknown Unknown grandparent Unknown Family history of lung cancer Unknown Not Specified Malignant neoplasm Unknown Relationship Condition Age at Onset Recorded Date/T sanket father History of malignant neoplasm of prostate Unknown Malignant neoplasm Unknown grandparent Family history of colon cancer Unknown Unknown grandparent Unknown Family history of lung cancer Unknown mother Malignant neoplasm Unknown Relationship Condition Age at Onset Recorded Date/T sanket father History of malignant neoplasm of prostate Unknown grandparent Unknown mother Malignant neoplasm of skin Unknown brother Malignant melanoma of skin Unknown maternal grandmother Malignant neoplasm of colon Unkno wn maternal grandfather Malignant neoplasm of colon Unkno wn paternal grandfather Family history of lung cancer Unk nown Advance Directives Advance Directive Response Recorded Date/ Time Advance [...] (attention defi cit hyperactivity disorder) Chief Complaint R10.2 telephone/med refill Reason for Visit ADHD (attention defi cit hyperactivity disorder) Encounter for screening colonoscopy Chief Complaint telephone/med refill Screening Screening Reason for Visit ADHD (attention defi cit hyperactivity disorder) Encounter for screening colonoscopy Additional Source Comments INFORMATION SOURCE (unrecogn ized section and content) DATE CREATED AUTHOR 12/05/2019 [facility] DATE CREATED AUTHOR AUTHOR'S ORGANIZ ATION 05/06/2023 [facility] DATE CREATED AUTHOR AUTHOR'S ORGANIZ ATION 09/08/[address] [facility] DATE CREATED AUTHOR AUTHOR'S ORGANIZ ATION 10/14/2024 [facility] EPIC REASON FOR VISIT (unrecogniz ed section and content) Reason Comments Gynecologic Exam Pt presents for year ly . LMP 11-9. Uses tampons, cycles are regular with mild cramping and moderate bleeding. Pt denies any breast/bladder/ bowel problems/concerns. Care Teams (unrecognized sec tion and content) Team Status: Active Member Role Status Dates Liz Chi DO Primary Care Provider Active Team Status: Inactive Member Role Status Dates Liz Chi DO Primary Care Provider, Attending Pro vider Active Team Status: Inactive Member Role Status Dates Liz Chi , DO Primary Care Provider Active Jeremiah Schmitz DO Attending Provider Active Team Status: Inactive Member Role Status Dates Alexandra Anderson APRN Attending Provider Active Team Status: Inactive Member Role Status Dates Referral Self Attending Provider Active Start: M arch 2023 End: February 17, 2024 Liz Chi DO Primary Care Provider Active S tart: February 17, 2024 End: February 17, 2024 Team Status: Active Member Role Status Dereje Chi DO Primary [...] May 03, 2024 End: May 03, 2024 Team Status: Active Member Role Status Dereje Chi DO Primary Care Provider Active S tart: May 10, 2024 Jeremiah Schmitz DO Attending Provider Active Sta rt: May 10, 2024 Team Status: Inactive Member Role Status Dereje Chi DO Primary Care Provide r, Attending Provider Active Start: July 06, 2024 End: July 06, 2024 Team Status: Inactive Member Role Status Dereje Chi DO Primary Care Provider Active S tart: September 06, 2024 End: September 06, 2024 Giovanna Rea DO Attending Provider Active St art: September 06, 2024 End: September 06, 2024 Team Status: Active Member Role Status Dereje Chi DO Primary Care Provider Active S tart: September 06, 2024 Giovanna Rea , DO Attending Provider, Other Provider Active Start: September 06, 2024 Contract Implementation Analyst Relationship Specialty Start Date End Date Liz Chi MD [address] [place], [place] [id number] PCP - General Family Medicine 06/16/23 Goals (unrecognized section and content) Goals may [...] BE BASED ON THE PRIMARY CLINICAL RECORDS. [email or web address] [facility]. provides no warranty or guarantee of the accuracy or completeness of information in this document.
[2024-11-23 14:20] LABS: Bilirubin Urine NEGATIVE (NEGATIVE); Blood Urine LARGE (NEGATIVE); Clarity Urine CLEAR (CLEAR); Color Urine LT. YELLOW (YELLOW); Glucose Urine UA NEGATIVE (NEGATIVE); Ketones Urine NEGATIVE (NEGATIVE); Leukocyte Esterase Urine MODERATE (NEGATIVE); Nitrite Urine NEGATIVE (NEGATIVE); Protein Urine NEGATIVE (NEG/TRACE); Specific Gravity Urine <=1.005 (1.005-1.025); Urobilinogen Urine 0.2 EU/dL (0.2-1.0); pH Urine 6.5 (5.0-9.0)
[2024-11-23 14:26] LABS: BOX Test Reference Lab FIRELANDS
[2024-11-23 14:52] LABS: BOX Test Sent Out URINE
== END 2024-11-23 13:37 | disposition home or self-care (01) ==
LOC: LAB 13:50
PROVIDERS: PCP Family Medicine; Visit Provider Family Medicine
DX: N30.90 Cystitis, unspecified without hematuria (principal)
CPT/HCPCS: 36415; 81003; 87086